=== PATIENT | female | born 1960 | race Caucasian/White ===

== ENCOUNTER 2017-01-27 20:39 | Inpatient (IN) | payer BC, OTHER ==
[2017-01-27] MEDS ORDERED: VANCOMYCIN 1 GM in NS 250 ML IV ONE (20:56)
[2017-01-27] MEDS ORDERED: CLINDAMYCIN 600 MG/DEXTROSE 50 ML IV ONE (21:02)
--- NOTE | 2017-01-27 21:14 | UCPHY ---
H & P Patient Type: New Chief Complaint Nursing Narrative: right foot infection, started Friday Time Seen by Provider: 01/27/17 20:55 HPI/ROS: This patient presents with a significant foul-smelling foot infection. She explains along with her sister who also provides history that for approximately 2 months he has had a blister of plantar aspect of the right foot that was not causing him many symptoms. However after running through airport to catch a plane to [place] this weekend on Friday she then developed some foot swelling and thinks she may have tweaked her ankle. She then had difficulty fitting into her shoe and she thinks that and squeezing in the shoe she may have caused an abrasion to the the bottom blister then became infected. By Friday there is erythema to the medial aspect of the foot along the 1st metatarsal region by description of her sister. The patient started penicillin 500 mg tabs 4 times a day on Friday (her sister had this PCN to tx. a dental infection), however symptoms quickly progressed to include an open wound to the plantar aspect of the forefoot, open wound to the lateral aspect of the great toe erythema to the dorsum of the foot and pale and black tissue to the plantar distal forefoot with increasing foul smell. She sella I a doctor in their hotel this morning who gave her 5 mg dose of Levaquin in 300 mg oral dose of clindamycin encouraged her to travel to hospital for IV antibiotics. The [place] and present here. ROS: She thinks she had a fever on Friday but attributes that to cold symptoms. Her fever has resolved although she did take ibuprofen 6 hours prior to arrival. No other constitutional symptoms. HEENT: Her URI-nasal congestion has resolved. No headache. Pulmonary: No cough GI: No nausea or vomiting : No complaints 10 point ROS is otherwise negative Source: Patient Exam Limitations: No limitations - Personal History LMP (Females 10-55): Post Menopausal Current Tetanus Diphtheria and Acellular Pertussis (TDAP): No - Medical/Surgical History PMH: Moderate obesity. Otherwise healthy Hx Asthma: No Hx Chronic Respiratory Disease: No Hx Diabetes: No Hx Cardiac Disease: No Hx Renal Disease: No Hx Cirrhosis: No Hx Alcoholism: No Hx HIV/AIDS: No Hx Splenectomy or Spleen Trauma: No Other PMH: DENIES - Family History Significant Family History: No pertinent family hx - Social History Smoking Status: Never smoked Alcohol Use: Occasionally Drug Use: None Additional Social History: This patient lives in [place]. She is visiting here with her sister after traveling back from [place] - Physical Exam Exam: General Appearance: Alert, no distress. Eyes: Pupils equal and round no pallor or injection. ENT, Mouth: Mucous membranes moist. Respiratory: There are no retractions, lungs are clear to auscultation. Cardiovascular: Regular rate and rhythm. Neurological: Alert. She has slight decreased sensation to pinprick to the affected foot. Otherwise intact throughout Skin: Warm and dry, no rashes. Musculoskeletal: Neck is supple nontender. Extremities are symmetrical, full range of motion. Except for right foot Right foot: There is open wound to the lateral aspect of the great toe with confluent erythema to the great toe and moderate swelling circumferentially. The erythema extends to the distal 1/3 dorsum of the foot and on the plantar aspect of the foot there is a 1 cm in diameter ulcerative lesion that appears to go to deep layers of skin surrounding area appears to be nonviable pale skin 3 x 6 cm in size. There is dark discoloration to the plantar aspect of the great toe in the entire area is foul-smelling. Psychiatric: Patient is oriented X 3, there is no agitation. DIFFERENTIAL DIAGNOSIS: After history and physical exam differential diagnosis was considered for gangrene, foot cellulitis, osteomyelitis Constitutional: Initial Vital Signs Temperature (C) 37.0 C 01/27/17 20:46 Heart Rate 90 01/27/17 20:46 Respiratory Rate 16 01/27/17 20:46 Blood Pressure 137/129 H 01/27/17 20:46 O2 Sat (%) 96 01/27/17 20:46 O2 Delivery Mode Room Air Allergies/Adverse Reactions: No Known Allergies Allergy (Unverified 12/26/15 14:51) Home Medications: Medication Instructions Recorded NK [No Known Home Meds] 01/27/17 Medical Decision Making - Diagnostics Imaging: Foot X-ray: There is gas in the plantar aspect of the great toe the lateral view by my interpretation. I appreciate no bony erosions or other abnormalities. ED Course/Re-evaluation: IV vancomycin and Zosyn suggested. We do not have Zosyn here in the clinic. Will give her Vancomycin & a dose of clindamycin while she awaits admission the plan for vanco/Zosyn in the hospital I spoke with Dr. Anand Gale Infectious Disease to coordinate antibiotic Plan This spoke with Dr Jason Maier, Orthopoedic MD on -call who will consult in the hospital for potential surgical debridement. Spoke with Dr. Michael Huang, hospitalist who will accept this patient at [facility] for transfer. Discussion: Patient presents with foot infection concerning for gangrene warranting admission and potential surgical debridement. Patient was initially reluctant to be admitted but then agreed. - Data Points Laboratory Results: Laboratory Results 01/27/17 21:21 01/27/17 21:21 01/27/17 01/27/17 21:21 21:21 WBC 12.98 10^3/uL H 10^3/uL (3.80-9.50) RBC 5.45 10^6/uL H 10^6/uL (4.18-5.33) Hgb 16.0 g/dL g/dL (12.6-16.3) Hct 46.5 % % (38.0-47.0) MCV 85.3 fL fL (81.5-99.8) MCH 29.4 pg pg (27.9-34.1) MCHC 34.4 g/dL g/dL (32.4-36.7) RDW 12.6 % % (11.5-15.2) Plt Count 341 10^3/uL 10^3/uL (150-400) MPV 9.6 fL fL (8.7-11.7) Neut % (Auto) 59.8 % % (39.3-74.2) Lymph % (Auto) 29.6 % % (15.0-45.0) [place] % (Auto) 7.9 % % (4.5-13.0) Eos % (Auto) 1.8 % % (0.6-7.6) Baso % (Auto) 0.5 % % (0.3-1.7) Nucleat RBC Rel Count 0.0 % % (0.0-0.2) Absolute Neuts (auto) 7.77 10^3/uL H 10^3/uL (1.70-6.50) Absolute Lymphs (auto) 3.84 10^3/uL H 10^3/uL (1.00-3.00) Absolute Monos (auto) 1.02 10^3/uL H 10^3/uL (0.30-0.80) Absolute Eos (auto) 0.24 10^3/uL 10^3/uL (0.03-0.40) Absolute Basos (auto) 0.06 10^3/uL 10^3/uL (0.02-0.10) Absolute Nucleated RBC 0.00 10^3/uL 10^3/uL (0-0.01) Immature Gran % 0.4 % % (0.0-1.1) Immature Gran # 0.05 10^3/uL 10^3/uL (0.00-0.10) ESR 35 MM/HR H MM/HR (0-30) Sodium 141 mEq/L mEq/L (134-144) Potassium 3.7 mEq/L mEq/L (3.5-5.2) Chloride 96 mEq/L L mEq/L (97-110) Carbon Dioxide 27 mEq/l mEq/l (22-31) Anion Gap 18 mEq/L H mEq/L (8-16) BUN 18 mg/dL mg/dL (7-23) Creatinine 0.7 mg/dL mg/dL (0.6-1.0) Estimated GFR > 60 Glucose 203 mg/dL H mg/dL (70-100) Calcium 9.4 mg/dL mg/dL (8.5-10.4) Medications Given: Discontinued Medications Vancomycin HCl 1 gm/ Sodium (Chloride) 250 mls @ 250 mls/hr IV EDNOW ONE PRN Reason: Protocol Stop: 01/27/17 21:55 Last Admin: 01/27/17 21:40 Dose: 250 mls Departure - Departure Disposition: [facility] Acute Clinical Impression: Gangrene of foot Condition: Fair Referrals: NONE *PRIMARY CARE P,. [Primary Care Provider] - As per Instructions - PQRS PQRS Measurement: NA
[2017-01-27 21:31] LABS: % IMMATURE GRANULYOCYTES 0.4 % (0.0-1.1); ABSOLUTE IMMATURE GRANULOCYTES 0.05 10^3/uL (0.00-0.10); ADD DIFF? NO; ADD MORPH? NO; ADD SCAN? NO; ATYPICAL LYMPHOCYTE FLAG 10 (0-99); FRAGMENT RBC FLAG 0 (0-99); HEMATOCRIT 46.5 % (38.0-47.0); LEFT SHIFT FLG 0 (0-99); LIPEMIA HEMOLYSIS FLAG 90 (0-99); MEAN CELL HEMOGLOBIN 29.4 pg (27.9-34.1); MEAN CELL HEMOGLOBIN CONCENTR. 34.4 g/dL (32.4-36.7); MEAN CELL VOLUME 85.3 fL (81.5-99.8); MEAN PLATELET VOLUME 9.6 fL (8.7-11.7); PLATELET CLUMPS FLAG 0 (0-99); PLATELET COUNT 341 10^3/uL (150-400); RED BLOOD CELL COUNT 5.45 10^6/uL (4.18-5.33); RED CELL DISTRIBUTION WIDTH 12.6 % (11.5-15.2)
[2017-01-27 21:43] LABS: ANION GAP 18 mEq/L (8-16); CALCIUM 9.4 mg/dL (8.5-10.4); CARBON DIOXIDE 27 mEq/l (22-31); CHLORIDE 96 mEq/L (97-110); CREATININE 0.7 mg/dL (0.6-1.0); GLOMERULAR FILTRATION RATE > 60; GLUCOSE 203 mg/dL (70-100); POTASSIUM 3.7 mEq/L (3.5-5.2); SODIUM 141 mEq/L (134-144)
[2017-01-27 21:47] LABS: SEDIMENTATION RATE 35 MM/HR (0-30)
[2017-01-27] MEDS ORDERED: PIPERACILLIN SODIUM/TAZOBACTAM 3.375 GM in NS 100 ML IV ONE (21:50)
[2017-01-27] MEDS ORDERED: CLINDAMYCIN 600 MG/DEXTROSE/50 ML BAG IV ONE (22:04)
[2017-01-28] MEDS ORDERED: HYDROmorphONE/DILAUDID 1 MG/ML SYR IVP PRN (00:10)
[2017-01-28] MEDS ORDERED: ONDANSETRON 4 MG/2 ML VIAL IVP PRN (00:10)
[2017-01-28] MEDS ORDERED: ONDANSETRON DISINTEGRATING 4 MG TAB PO PRN (00:10)
[2017-01-28] MEDS ORDERED: NS 1,000 ML IV SCH (00:15)
--- NOTE | 2017-01-28 00:47 | PDGENHP ---
History and Physical - Chief Complaint foot pain and swelling - History of Present Illness Patient is a 56/F with obesity who presented to the Urgent care with complaint of R foot infection. Patient has been traveling for the past 2 weeks, was most recently in [place], when on 01/23 she rolled her ankle at the airport. After that , her ankle and foot began to swell and she developed a blister on the plantar aspect of her R foot, just below the great toe. She reports a subjective fever on Friday night and then the following day her blister opened and started draining sero-sanguinous, foul-smelling fluid. Her foot was moderately edematous , erythematous and painful. She continued to have subjective fevers and chills through the weekend and today she went to a clinic in [place] and was given Cipro and Clindamycin, which she took. She then flew back to [place] and went to the Urgent care for further evaluation. She denies any associated headache, dizziness, chest pain, palpitations, cough, shortness of breath or n/v/d. On arrival to the Urgent Care, she was afebrile and hemodynamically stable. Labs revealed mild leukocytosis, normal BMP. X-ray of her foot revealed significant soft tissue edema with subcutaneous gas also seen. Orthopedics and ID were consulted, patient was cultured and initiated on broad spectrum antibiotics. She was then transferred to [facility] for admission. History Information - Allergies/Home Medication List Allergies/Adverse Reactions: No Known Allergies Allergy (Unverified 12/26/15 14:51) Home Medications: NK [No Known Home Meds] 01/27/17 [Last Taken Unknown] I have personally reviewed and updated: family history, medical history, social history, surgical history - Past Medical History Additional medical history: obesity. patient denies any other medical history - Surgical History Reports: no pertinent surgical hx - Family History Additional family history: F: CVA in 90s. M: CHF - Social History Smoking Status: Never smoked Alcohol Use: Occasionally Drug Use: None Additional social history: Patient works in [employer]; lives in [place], is currently visiting her sisters in [place]. Review of Systems ROS: 10pt was reviewed & negative except for what was stated in HPI & below Physical Exam Temp Pulse Resp BP Pulse Ox 37.7 C 94 18 174/88 H 90 L 01/28/17 00:27 01/28/17 00:27 01/28/17 00:27 01/28/17 00:27 01/28/17 00:27 O2 (L/minute) 2 Constitutional: no apparent distress, appears nourished, not in pain, obese Eyes: PERRL, anicteric sclera, EOMI Ears, Nose, Mouth, Throat: moist mucous membranes, hearing normal, ears appear normal, no oral mucosal ulcers Cardiovascular: regular rate and rhythym, no murmur, rub, or gallop, pulses symmetric bilaterally, edema (1-2+ pitting edema of RLE), No JVD Peripheral Pulses: 2+: dorsalis-pedis (R), dorsalis-pedis (L) Respiratory: no respiratory distress, no rales or rhonchi, clear to auscultation Gastrointestinal: normoactive bowel sounds, soft, non-tender abdomen, no palpable masses, No tenderness, No guarding, No rebound, No distension Genitourinary: no bladder fullness, no bladder tenderness Skin: warm, other (R foot edematous, erythematous and warm to touch; foul smelling serosang discharge; wound wrapped in clean dressing), No mottled Musculoskeletal: full muscle strength, no muscle tenderness, normal joint ROM, no joint effusions Neurologic: AAOx3, sensation intact bilaterally, CN II-XII Intact, No weakness, No numbness, No facial droop Psychiatric: interacting appropriately, not anxious, not encephalopathic, thought process linear Lab Data & Imaging Review 01/27/17 21:21 01/27/17 21:21 WBC 12.98 10^3/uL (3.80-9.50) H 01/27/17 21:21 RBC 5.45 10^6/uL (4.18-5.33) H 01/27/17 21:21 Hgb 16.0 g/dL (12.6-16.3) 01/27/17 21:21 Hct 46.5 % (38.0-47.0) 01/27/17 21:21 MCV 85.3 fL (81.5-99.8) 01/27/17 21:21 MCH 29.4 pg (27.9-34.1) 01/27/17 21:21 MCHC 34.4 g/dL (32.4-36.7) 01/27/17 21:21 RDW 12.6 % (11.5-15.2) 01/27/17 21:21 Plt Count 341 10^3/uL (150-400) 01/27/17 21:21 MPV 9.6 fL (8.7-11.7) 01/27/17 21:21 Neut % (Auto) 59.8 % (39.3-74.2) 01/27/17 21:21 Lymph % (Auto) 29.6 % (15.0-45.0) 01/27/17 21:21 [place] % (Auto) 7.9 % (4.5-13.0) 01/27/17 21:21 Eos % (Auto) 1.8 % (0.6-7.6) 01/27/17 21:21 Baso % (Auto) 0.5 % (0.3-1.7) 01/27/17 21:21 Nucleat RBC Rel Count 0.0 % (0.0-0.2) 01/27/17 21:21 Absolute Neuts (auto) 7.77 10^3/uL (1.70-6.50) H 01/27/17 21:21 Absolute Lymphs (auto) 3.84 10^3/uL (1.00-3.00) H 01/27/17 21:21 Absolute Monos (auto) 1.02 10^3/uL (0.30-0.80) H 01/27/17 21:21 Absolute Eos (auto) 0.24 10^3/uL (0.03-0.40) 01/27/17 21:21 Absolute Basos (auto) 0.06 10^3/uL (0.02-0.10) 01/27/17 21:21 Absolute Nucleated RBC 0.00 10^3/uL (0-0.01) 01/27/17 21: Immature Gran % 0.4 % (0.0-1.1) 01/27/17 21:21 Immature Gran # 0.05 10^3/uL (0.00-0.10) 01/27/17 21:21 ESR 35 MM/HR (0-30) H 01/27/17 21:21 Sodium 141 mEq/L (134-144) 01/27/17 21:21 Potassium 3.7 mEq/L (3.5-5.2) 01/27/17 21:21 Chloride 96 mEq/L (97-110) L 01/27/17 21:21 Carbon Dioxide 27 mEq/l (22-31) 01/27/17 21:21 Anion Gap 18 mEq/L (8-16) H 01/27/17 21:21 BUN 18 mg/dL (7-23) 01/27/17 21:21 Creatinine 0.7 mg/dL (0.6-1.0) 01/27/17 21:21 Estimated GFR > 60 01/27/17 21:21 Glucose 203 mg/dL (70-100) H 01/27/17 21:21 Calcium 9.4 mg/dL (8.5-10.4) 01/27/17 21:21 Visualized and Interpreted imaging results: Yes Interpretation: x-ray R foot: soft tissue swelling with subcutaneous gas; no bony fracture Visualized and Interpreted EKG results: Yes EKG Interpretation: Positive for: normal sinsus rhythm Assessment & Plan Assessment: Patient is a 56/F with no significant pmh who presented to the [facility] with R foot pain, swelling and erythema x 3 days. Work up reveals acute gangrene of an open foot wound. Plan: # acute gangrene of R foot Patient reports infection began with a ruptured blister, wound has progressively worsened over the past 3 days. She denies any pmh, but will screen for DM2. X-ray reveals subcutaneous gas concerning for gas gangrene. On presentation, patient has a leukocytosis, but does not have fever, tachycardia or tachypnea or evidence of endorgan involvement, so does not meet sepsis criteria. Will check MRI to further assess extent of wound and to rule out osteomyelitis, continue broad spectrum antibiotics and f/o Ortho and ID recommendations. - f/u blood and wound cultures - cont Vanc/Zosyn - IVF hydration: NS @ 100 cc/hr - pain control prn - will also check doppler, to r/o DVT given degree of swelling and recent air travel - f/u ID and Ortho # dispo: admit to inpatient service for likely > 2 [place] stay # gen: NPO DVT ppx: lovenox, when appropriate post-op Full code
--- NOTE | 2017-01-28 00:48 | CPEKG ---
Heart Rate: 90 RR Interval: 667 P-R Interval: 168 QRSD Interval: 92 QT Interval: 364 QTC Interval: 446 P Kellogg: 44 QRS Kellogg: -16 T Wave Kellogg: 56 EKG Severity - OTHERWISE NORMAL ECG - EKG Impression: SINUS RHYTHM EKG Impression: BORDERLINE LEFT AXIS DEVIATION EKG Impression: Possible left atrial abnormality Electronically Signed By: Rich Cevallos 28-Jan-2017 06:28:17
[2017-01-28 04:51] LABS: % IMMATURE GRANULYOCYTES 0.4 % (0.0-1.1); ABSOLUTE IMMATURE GRANULOCYTES 0.05 10^3/uL (0.00-0.10); ADD DIFF? NO; ADD MORPH? NO; ADD SCAN? NO; ATYPICAL LYMPHOCYTE FLAG 30 (0-99); FRAGMENT RBC FLAG 0 (0-99); HEMATOCRIT 44.5 % (38.0-47.0); HEMOGLOBIN 15.2 g/dL (12.6-16.3); LEFT SHIFT FLG 0 (0-99); LIPEMIA HEMOLYSIS FLAG 90 (0-99); MEAN CELL HEMOGLOBIN 29.4 pg (27.9-34.1); MEAN CELL HEMOGLOBIN CONCENTR. 34.2 g/dL (32.4-36.7); MEAN CELL VOLUME 86.1 fL (81.5-99.8); MEAN PLATELET VOLUME 9.7 fL (8.7-11.7); PLATELET CLUMPS FLAG 0 (0-99); PLATELET COUNT 289 10^3/uL (150-400); RED BLOOD CELL COUNT 5.17 10^6/uL (4.18-5.33); RED CELL DISTRIBUTION WIDTH 12.6 % (11.5-15.2)
[2017-01-28 04:53] LABS: INR 1.17 (0.83-1.16); PROTIME(PATIENT) 14.9 SEC (12.0-15.0)
[2017-01-28 04:57] LABS: ALANINE AMINOTRANSFERASE 31 IU/L (9-52); ALBUMIN 3.1 g/dL (3.5-5.0); ALKALINE PHOSPHATASE 83 IU/L (38-126); ANION GAP 11 mEq/L (8-16); ASPARTATE AMINOTRANSFERASE 17 IU/L (14-46); CALCIUM 8.9 mg/dL (8.5-10.4); CARBON DIOXIDE 24 mEq/l (22-31); CHLORIDE 103 mEq/L (97-110); CREATININE 0.6 mg/dL (0.6-1.0); GLOMERULAR FILTRATION RATE > 60; GLUCOSE 221 mg/dL (70-100); POTASSIUM 3.9 mEq/L (3.5-5.2); SODIUM 138 mEq/L (134-144); TOTAL PROTEIN 6.6 g/dL (6.3-8.2)
[2017-01-28 05:21] LABS: SEDIMENTATION RATE 48 MM/HR (0-30)
[2017-01-28 05:22] LABS: C-REACTIVE PROTEIN 133.9 mg/L (<10.0)
[2017-01-28] MEDS ORDERED: PIPERACILLIN/TAZO 3.375 GM/DEX 50 ML IV SCH (06:00)
[2017-01-28] MEDS ORDERED: VANCOMYCIN HCL/NORMAL SALINE 250 ML IV SCH (09:00)
[2017-01-28] MEDS: ENOXAPARIN 40 MG/0.4 ML SYR SC SCH (09:08)
--- NOTE | 2017-01-28 09:12 | WOCRNPDOC ---
[facility] Advanced Assessment Note - Skin Integrity Problem, Advanced Assess Right Foot Dressing Type: Gauze Dressing Description: Saturated Exudate Amount: Moderate Exudate Color: Clear, Reddish/Yellow Exudate Characteristic(s): Serosanguinous Integumentary Issue Intervention: Dressing Applied Janet Wound Tissue: Erythema, Macerated, Swollen, Hyperkeratotic Janet Wound Swelling: Moderate Wound Bed Color: Red, Montero Wound Bed Constitution: Granulation Tissue (in wound bed of 2nd/3rd metatarsal plantar wound), Undermining (in wound bed of 2nd/3rd metatarsal plantar wound, from 6-12 o'clock 0.2cm), De-roofed Serous Blister (Plantar 1st metatarsal/ great toe wound, exudate presently clear, non-purulent, malodorous.) Wound Edges: Well Defined (2nd/3rd metatarsal plantar wound), Irregular (wound distal to R great toe) Site Odor: Foul Site Measurement - Head-to-Toe Length X Width X Depth (cm): R plantar 1st metatarsal (below great toe): [id number]. R plantar 2nd/3rd metatarsal: [id number], undermining 0.2cm from 6-12 o'clock. Skin Integrity Problem Comment: Two discrete wounds on patient's R plantar foot. The first wound is just below R great toe on the plantar surface/1st metatarsal. It is a de-roofed blister, which patient reported was sanguionous and previously intact, now open and draining clear, foul-smelling exudate. It extends from the plantar surface up between 1st and 2nd toes, and is draining a moderate amount. Janet-wound tissue is macerated as a result of this exudate. Wound bed comprised of montero, boggy tissue, necrotic in appearance. Associated erythema and swelling extending up R foot, w/ c/o pain closer to the wound. The second wound is located on the plantar R foot between the 2nd and 3rd metatarsal , and is consistent in appearance w/ a diabetic foot ulcer, though patient has no known h/o diabetes. Wound bed 90% granulation, 10% whitish, fibrotic tissue, no apparent necrosis. Significant hyperkeratotic tissue janet-wound, and 0.2cm undermining noted from 6-12 o'clock. Patient reports that this wound has healed previously and re-opened this past week. Assessed site with Dania Valencia and Luisito. Current plan includes an MRI of this extremity and surgical consultation. Wound care at this point directed at managing exudate to protect janet-wound tissue. Will re-evaluate when underlying dx and tx more apparent.
[2017-01-28 09:20] LABS: HEMOGLOBIN A1C 10.2 % (4.0-6.0)
[2017-01-28] MEDS ORDERED: VANCOMYCIN 500 MG in D5W 100 ML IV ONE (09:30)
--- NOTE | 2017-01-28 10:12 | GCON ---
[f rep st] CONSULTATION INFECTIOUS DISEASE DATE OF CONSULTATION: 01/28/2017 REFERRING PHYSICIAN: Bisi Haji MD CHIEF COMPLAINT: Right foot open wound with drainage and foul smelling, fevers and shaking chills. HISTORY OF PRESENT ILLNESS: This is a 56-year-old, female, who has insignificant past med ical history other than obesity, who presented to the urgent care yesterday due to foul-smelling ope n wound on her right foot. Her history dates back to about 6 days ago when she was running through the airport and had twisted her ankle. She started to notice swelling of her foot and had jammed he r foot into a tight fitting shoe. She has had some calluses on the bottom of her foot that she stat es were closed during this time. On Friday she reached [place] and started to have fevers to 102 w ith shaking chills. By Friday, she continued to have fevers, shaking chills and she noted that there was a small area on her bottom of her foot that was starting to get bluish in nature, an d the foot was swelling up. She started on her sister's penicillin medication and then [place] [facility] [place]. By Friday night, she states that the medial aspect of her foot wound started to open up and then started to become blackish in nature. She continued to have fevers and shaking chills. Friday morning, she started to notice redness developing involving her dorsum and plantar aspect of her foot. She did not submerge this foot in any pool water or ocean water or any other [facility] water. She did however take a shower. She saw the local [facility] doctor on Friday morning who put her on ciprofloxacin and clindamycin which she took, and continued to take until she flew back to [facility] yesterday. She came to the urgent care in the evening. Blood work was done, showed a leuko cytosis of 12.9, an elevated ESR, a venous lactate of 1.2. She had a temperature of 37, and a blood pressure of 137/129. Blood cultures x2 sets were drawn and a wound swab was done of the foot, whic h showed 1+ gram-negative rods, 1+ gram-positive cocci and the culture is pending. She had a foot x -ray done which showed gas in the subcutaneous tissue but no obvious osteomyelitis, and it was recom mended to come to the ER and get admitted for hospitalization. She was started empirically on vanco mycin and clindamycin at the urgent care and then continued on vancomycin and Zosyn after she was ad mitted here late last night, early this morning. An MRI has been ordered and is waiting to be done at this time. The patient was quite upset this morning, as she thought that she would have the MRI and surgery in the middle of the night. She was about to leave AMA. I had a long discussion with h er, alongside with the hospitalist team to review the gravity of her infection. Infectious Disease is now consulted for further evaluation and management. REVIEW OF SYSTEMS: GENERAL: Fevers and shaking chills as stated above. HEAD: Intermittent headac hes. EYES: No change in vision. ENT: No sore throat or difficulty swallowing, ear pain or draina ge. She does have some nasal drainage and postnasal drip without sinus pain or pressure. CARDIOVAS CULAR: Denies any chest pain or rapid heartbeat. RESPIRATORY: Denies any shortness of breath. Sh e has intermittent mild phlegm with a minimal cough. ABDOMEN: Mild abdominal cramps which are inte rmittent and has currently resolved. Denies nausea, vomiting or diarrhea. Denies any flank pain or back pain. : Denies any dysuria or hematuria. MUSCULOSKELETAL: Denies any other joint pains o r muscle aches except for the right ankle and foot. Right lower extremity edema. SKIN: No other r ashes or wounds other than the right foot wound. Rest of 10-point review of systems essentially neg ative. PAST MEDICAL HISTORY: Significant for obesity. PAST SURGICAL HISTORY: None. ALLERGIES: Eggs but she tolerates baked goods that have eggs in it. SOCIAL HISTORY: Nonsmoker. Drinks alcohol occasionally. No illicit drugs. She works in [employer] for [email or web address]. She lives in [place]. She lives alone. She has a dog and a cat which are healthy. Recent travel to [facility] over the weekend. She has sisters in [facility]. FAMILY HISTORY: Significant for CVA, CHF, coronary disease. PHYSICAL EXAMINATION: VITAL SIGNS: Temperature 37.7, pulse is 94, respiratory rate is 18, blood pr essure 174/88, saturation 90% on 2 L O2 via nasal cannula. GENERAL: Patient is sitting up, in no a cute respiratory distress. Awake, alert, oriented x3. The room is very foul smelling from her righ t foot. HEENT: Head is normocephalic, atraumatic. Eyes with some mild conjunctival injection bila terally. No conjunctival petechiae noted. Oropharynx is clear. There is no obvious posterior eryt karis or thrush. Tongue is mildly coated. Dry mucous membranes. CARDIOVASCULAR: S1, S2. Regular rate and rhythm. No obvious murmurs appreciated. RESPIRATORY: Clear to auscultate bilaterally. N o rhonchi or rales appreciated. ABDOMEN: Obese, positive bowel sounds in all 4 quadrants. Soft, n ontender, nondistended. No obvious organomegaly appreciated. EXTREMITIES: Pertinent findings with right lower extremity edema. MUSCULOSKELETAL: No obvious joint effusions or pain on palpation of the joints. SKIN: Pertinent findings, erythema involving the dorsum and plantar aspect of the righ t foot with 2 open wounds, 1 in the center of the plantar foot which has heavy callus around it and another 1 more medially which extends up into the base of the great toe. There is necrotic foul-sme lling tissue there, and there is some intermixed serosanguineous and purulent drainage that can be e xpressed through there. There is mild crepitus that can be appreciated especially along the medial aspect of the foot. Again the foot is quite foul-smelling. There is bogginess to the tissue as wel l. LABS: White blood cell count currently 11.6, hemoglobin 15.2, platelets are 289, neutrophil count 6 5%. INR 1.1. Venous lactic acid 1.2. Sodium 138, potassium 3.9, chloride 103, bicarb is 24, BUN o f 17, creatinine 0.6. AST 17, ALT 31, alkaline phosphatase 83. Total bilirubin 1.0. C-reactive pr otein 133.9. Blood cultures x2 sets are pending. Wound cultures as stated above. Foot x-ray was r eviewed by me. It showed gas in the subcutaneous tissue. Lower extremity ultrasound with no DVT. She has a right Tolbert cyst and right groin nonspecific lymphadenopathy up to 3.4 cm. ASSESSMENT: Right foot cellulitis with a wound infection and necrotic tissue, concerning for necrot izing infectious process, underlying abscess. PLAN: The patient is currently on vancomycin and Zosyn. We will increase Zosyn dose to 4.5 g q.6 h ours for pseudomonal dosing at this point in time, until cultures are available. We will also add c lindamycin for antitoxin properties given the clinical presentation and concerns as stated above. M RI has been ordered and is to be done shortly. Orthopedics has been consulted. Dr. Wright is aware. The patient will require surgical management of this. Brief overview of the workup and treatment plans were explained in detail to the patient, along with a gravity and seriousness of the current i nfectious process along with likely need for ongoing hospitalization at least in the short term, pot ential complications, etc. Again first half an hour was spent in trying to convince the patient to stay in the hospital as she was about to leave [place]. A great deal of discussion was had with the milka goncalves along with her sisters at the bedside in order to convince the patient to stay. She has agreed to stay and has agreed to further management and care as well as workup here. Care coordinated wit h the hospitalist team, nursing team. TIME SPENT: Greater than 110 minutes spent in the care of this patient with the above coordination of care, counseling and education, etc. Thank you very much, for allowing me the opportunity to care for your patient in consultation. /[id number]/MODL
[2017-01-28] MEDS ORDERED: GADOBUTROL 10 ML VIAL IVP ONE (11:01)
[2017-01-28] MEDS ORDERED: BACITRACIN 50,000 UNITS/10 ML SYR IRR ONE (13:13)
[2017-01-28] MEDS ORDERED: BUPIVACAINE 0.25% 30 ML SDV ONE (13:13)
[2017-01-28] MEDS: CLINDAMYCIN 600 MG/DEXTROSE 50 ML IV SCH ×3 (14:44→21:09)
--- NOTE | 2017-01-28 15:02 | HOSPPROG ---
Hospitalist Progress Note Assessment/Plan: # acute right foot cellulitis with open wound and necrotic tissue- this is been a slowly developing wound patient was taking ciprofloxacin and clindamycin through a [facility] physician while traveling- return to [place] and presented to urgent care Foot xray ( personally reviewed and interpreted) with sub Q gas under great toe no fractures - IV clindamycin, vancomycin and Zosyn per Infectious Disease - wound care prior to operating room - MRI preoperative - planning for surgical debridement with Dr. Hanna today - blood cultures pending # Hyperglycemia - new dx DM - HBA1c is 10.2 on admission - will need to initiate treatment prior to dc - follow post-op sugars and start low dose SSI if remains elevated - cont IVF while NPO for OR # acute leukocytosis- secondary to foot cellulitis and wound- follow on antibiotics- oxygen saturations 94% on room air # prophylaxis with Lovenox postop when cleared by surgery # diet NPO for the operating room # disposition greater than 2 midnights as will require surgical debridement and postoperative wound care as well as diagnostics related to pathogen I have discussed the case with infectious disease we will begin with triple therapy antibiotics and follow postoperative wound cultures closely to assist in determination of length of treatment Subjective: minimal pain Objective: Vital Signs Temp Pulse Resp BP Pulse Ox 37.3 C 91 16 170/105 H 96 01/28/17 12:06 01/28/17 12:06 01/28/17 12:06 01/28/17 12:06 01/28/17 12:06 Microbiology 01/27/17 21:55 Gram Stain - Final Toe - Swab Laboratory Results 01/28/17 04:25 01/28/17 04:25 01/27/17 01/28/17 01/29/17 05:59 05:59 05:59 Intake Total 950 Balance 950 PT 14.9 SEC (12.0-15.0) 01/28/17 04:25 INR 1.17 (0.83-1.16) H 01/28/17 04:25 - Physical Exam Constitutional: obese Eyes: anicteric sclera Ears, Nose, Mouth, Throat: moist mucous membranes Cardiovascular: regular rate and rhythym Respiratory: no respiratory distress, no rales or rhonchi Gastrointestinal: normoactive bowel sounds, soft, non-tender abdomen Genitourinary: no bladder fullness Skin: warm, other ( open necrotic wound of the left great toe) Musculoskeletal: No asymmetric calves Neurologic: AAOx3 Psychiatric: interacting appropriately, anxious Lymph, Heme, Immunologic: no cervical LAD ICD10 Worksheet Patient Problems: Problems Problem Status Onset Gangrene of foot Acute
[2017-01-28] MEDS: PIPERACILLIN/TAZO 4.5 GM/DEX 100 ML IV SCH ×3 (15:29→19:56)
[2017-01-28] MEDS ORDERED: CANN-EASE 2 GM TUBE TP ONE (15:33)
[2017-01-28] MEDS ORDERED: MIDAZOLAM 2 MG/2 ML VIAL ONE (16:22)
[2017-01-28] MEDS ORDERED: fentaNYL 100 MCG/2 ML INJ ONE (16:44)
[2017-01-28] MEDS ORDERED: PROPOFOL/EMULSION 500 MG/50 ML BOTTLE IV ONE (16:45)
--- NOTE | 2017-01-28 17:36 | POSTOPPROG ---
Post Op Note Date of Operation: 01/28/17 Surgeon: Yuri Maier Anesthesiologist: Sudheer Anesthesia: LMA Pre-op Diagnosis: Right foot ulcer Post-op Diagnosis: Infected right foot ulcer Procedure: Debridement of foot ulcer Findings: Black and Montero liquified tissue (foul smelling) Inf/Abcess present in the surg proc area at time of surgery?: Yes Depth: Deep Incisional (Fascial) EBL: Minimal
[2017-01-28] MEDS ORDERED: ONDANSETRON 4 MG/2 ML VIAL ONE (17:40)
[2017-01-28] MEDS ORDERED: GLYCOPYRROLATE 0.2 MG/1 ML VIAL ONE (17:40)
[2017-01-28] MEDS ORDERED: ROCURONIUM 50 MG/5 ML VIAL ONE (17:41)
[2017-01-28] MEDS ORDERED: PHENYLEPHRINE HCL 100 MCG/ML SYR ONE (17:41)
[2017-01-28] MEDS ORDERED: SUGAMMADEX SODIUM 200 MG/2 ML VIAL IVP ONE (17:41)
--- NOTE | 2017-01-28 18:04 | GOP ---
[f rep st] OPERATIVE REPORT DATE OF OPERATION: 01/28/2017 SURGEON: Yuri Maier MD PREOPERATIVE DIAGNOSIS: Septic foot ulcer, right forefoot. POSTOPERATIVE DIAGNOSIS: Septic foot ulcer, right forefoot. PROCEDURE PERFORMED: Debridement of right forefoot ulcer. FINDINGS: She had essentially liquefaction necrosis of the medial forefoot over the hallux proximal phalanx. This is exclusively on the plantar surface. I removed all nonviable tissue which was ess entially black and dark austin in color. It was mostly liquified. There was a remarkable foul smell from this tissue as well. This communicated with an ulcer over the 3rd metatarsophalangeal joint in the forefoot as well. I debrided the thick callosities at this location and removed all nonviable tissue I was able to identify. Saline soaked gauze was placed within the depths of the wound, follo wed by wet-to-dry dressing for a dressing change debridement. INDICATIONS: The patient is a 56-year-old female with a steadily worsening picture of an ulcer on h er foot. Her workup has included blood sugar testing which revealed high likelihood of diabetes. S he has minimal discomfort in her forefoot but has foul-smelling drainage and also with blackened mar gins on the medial forefoot. She is brought to the operating room for urgent debridement of nonviab le tissue. DESCRIPTION OF PROCEDURE: After routinely checking the patient's identification, consent and the ramirez ccessful induction of LMA general anesthetic, the patient's right lower extremity was prepped and dr aped in the usual standard fashion. A surgical time-out was completed. I did not use a tourniquet during this case, and notably there was minimal bleeding from her skin margins. I essentially used gauze to wipe most of the tissue free. This evacuated the majority of the disease liquified tissue. I then sharply debrided the skin edges in the depths of the wound. There was an obvious communica tion when I probed between the ulcer over the 3rd metatarsal phalangeal joint and the medial ulcer, which ran from the first MTP joint out to the IP flexion crease of the great toe. This is exclusive ly on the plantar surface. As noted above, there was minimal bleeding of the surrounding skin omar ns, even though these were sharply debrided back to what appeared to be pink tissue. The wound bed was thoroughly irrigated with 2 L of normal saline laced with bacitracin. Saline soaked gauze was p laced in the wound, followed by a pile of dry gauze dressings and a bulky wrap. The patient was rev ersed from anesthetic and extubated in the operating room and transferred to the recovery area. The patient tolerated the procedure well. There were no complications. /[id number]/MODL
[2017-01-28] MEDS: HYDROCODONE/APAP 5/325 TAB PO PRN (21:08)
[2017-01-28] MEDS: VANCOMYCIN 1.5 GM in D5W 250 ML IV SCH (21:52)
[2017-01-29] MEDS: PIPERACILLIN/TAZO 4.5 GM/DEX 100 ML IV SCH ×5 (00:09→23:39)
[2017-01-29 04:57] LABS: % IMMATURE GRANULYOCYTES 0.6 % (0.0-1.1); ABSOLUTE IMMATURE GRANULOCYTES 0.07 10^3/uL (0.00-0.10); ADD DIFF? NO; ADD MORPH? NO; ADD SCAN? NO; ATYPICAL LYMPHOCYTE FLAG 40 (0-99); FRAGMENT RBC FLAG 0 (0-99); HEMATOCRIT 39.9 % (38.0-47.0); HEMOGLOBIN 13.4 g/dL (12.6-16.3); LEFT SHIFT FLG 0 (0-99); LIPEMIA HEMOLYSIS FLAG 80 (0-99); MEAN CELL HEMOGLOBIN 28.9 pg (27.9-34.1); MEAN CELL HEMOGLOBIN CONCENTR. 33.6 g/dL (32.4-36.7); MEAN PLATELET VOLUME 9.3 fL (8.7-11.7); PLATELET CLUMPS FLAG 10 (0-99); PLATELET COUNT 292 10^3/uL (150-400); RED BLOOD CELL COUNT 4.64 10^6/uL (4.18-5.33); RED CELL DISTRIBUTION WIDTH 12.6 % (11.5-15.2)
[2017-01-29] MEDS: CLINDAMYCIN 600 MG/DEXTROSE 50 ML IV SCH ×3 (05:06→22:15)
[2017-01-29 05:17] LABS: ALANINE AMINOTRANSFERASE 25 IU/L (9-52); ALBUMIN 2.7 g/dL (3.5-5.0); ALKALINE PHOSPHATASE 74 IU/L (38-126); ANION GAP 7 mEq/L (8-16); ASPARTATE AMINOTRANSFERASE 18 IU/L (14-46); BILIRUBIN,TOTAL 0.8 mg/dL (0.1-1.4); CALCIUM 8.5 mg/dL (8.5-10.4); CARBON DIOXIDE 25 mEq/l (22-31); CHLORIDE 108 mEq/L (97-110); CREATININE 0.8 mg/dL (0.6-1.0); GLOMERULAR FILTRATION RATE > 60; GLUCOSE 209 mg/dL (70-100); POTASSIUM 4.4 mEq/L (3.5-5.2); SODIUM 140 mEq/L (134-144); TOTAL PROTEIN 5.7 g/dL (6.3-8.2)
[2017-01-29] MEDS: VANCOMYCIN 1.5 GM in D5W 250 ML IV SCH (08:41)
--- NOTE | 2017-01-29 10:35 | SOAPPROG ---
SOAP Progress Note Assessment/Plan: Assessment/Plan: R forefoot septic foot ulcer s/p debridement POD#1 - Continue pain management - Pt will need a Beka ortho wedge post-op shoe to keep all pressure off of the ulcer - Antibiotics per ID - Okay to start Lovenox - Wet to dry dressing, okay for wound care to change 01/29/17 10:07 Subjective: Pt states her pain is improved this morning. Pt denies fever, chills, chest pain , SOB, abdominal pain, N/V/D, numbness, tingling and calf pain. Objective: Vital Signs Temp Pulse Resp BP Pulse Ox 37.1 C 75 16 147/82 H 93 01/29/17 07:57 01/29/17 07:57 01/29/17 07:57 01/29/17 07:57 01/29/17 07:57 Microbiology 01/28/17 17:00 Gram Stain - Final Foot - Tissue 01/27/17 21:55 Gram Stain - Final Toe - Swab Laboratory Results 01/29/17 04:41 01/29/17 04:41 01/28/17 01/29/17 01/30/17 05:59 05:59 05:59 Intake Total 950 2620 Output Total 305 Balance 950 2315 PT 14.9 SEC (12.0-15.0) 01/28/17 04:25 INR 1.17 (0.83-1.16) H 01/28/17 04:25 Physical Exam - Physical Exam General Appearance: alert, no apparent distress Skin: warm/dry, decubitus (Right forefoot with surrounding erythema, no streaking), other (Post-operative dressing intact RLE) Extremities: normal range of motion, non-tender, normal capillary refill, No pedal edema, No calf tenderness, No swelling, No Nelsy's sign Neuro/Psych: no motor/sensory deficits, alert, normal mood/affect ICD10 Worksheet Patient Problems: Problems Problem Status Onset Gangrene of foot Acute
--- NOTE | 2017-01-29 11:08 | HOSPPROG ---
Hospitalist Progress Note Assessment/Plan: Patient is a 56/F who presented to the Urgent care with complaint of R foot infection. She had been traveling most recently to [place]. She developed a blister on the plantar aspect of her right foot. In addition she had subjective fever prior to admission. Today is my first encounter w the patient, chart reviewed. Discussed her care with Dr Judd. acute right foot cellulitis with open wound and necrotic tissue- -s/p debridement -had been treated w cipro and clindamycin through a [facility] physician while traveling -foot xray shows subcutaneous gas under great toe -IV clindamycin and Zosyn per Infectious Disease -blood cultures -NGTD -wound vac placed today -PICC to be placed # New diagnosis of Diabetes/ Hyperglycemia -HBA1c is 10.2 on admission - she prefers no Metformin at this time -started on low dose SSI/ and added basal insulin at night (Lantus 10 units) -ADA diet -asked dietary to see # Hypoxemia/acute -increase O2 needs -will get a chest xray now for further evaluation -not tachycardic, but had recent travel -consider CTA #HTN -bp elevated -will discuss with her about treatment # obesity with a BMI of 36 # acute leukocytosis- secondary to foot cellulitis and wound # prophylaxis with Lovenox # Plan: ADA diet, insulin, chest xray Subjective: Brenna has no specific complaints. Objective: Vital Signs Temp Pulse Resp BP Pulse Ox 37.1 C 75 16 147/82 H 93 01/29/17 07:57 01/29/17 07:57 01/29/17 07:57 01/29/17 07:57 01/29/17 07:57 Microbiology 01/28/17 17:00 Gram Stain - Final Foot - Tissue 01/27/17 21:55 Gram Stain - Final Toe - Swab Laboratory Results 01/29/17 04:41 01/29/17 04:41 01/28/17 01/29/17 01/30/17 05:59 05:59 05:59 Intake Total 950 2620 Output Total 305 Balance 950 2315 PT 14.9 SEC (12.0-15.0) 01/28/17 04:25 INR 1.17 (0.83-1.16) H 01/28/17 04:25 - Physical Exam Constitutional: appears nourished, obese Eyes: PERRL Ears, Nose, Mouth, Throat: hearing normal Cardiovascular: regular rate and rhythym Respiratory: no respiratory distress, reduced air movement (bases) Gastrointestinal: normoactive bowel sounds Skin: warm Musculoskeletal: no muscle tenderness Neurologic: AAOx3 Psychiatric: interacting appropriately, not anxious ICD10 Worksheet Patient Problems: Problems Problem Status Onset Gangrene of foot Acute
--- NOTE | 2017-01-29 11:12 | PCMIDPN ---
Assessment/Plan: LEFT foot necrotizing cellulitis, myositis due to GBS s/p debridement down to tendon. Wound at base of great toe base still with some necrosis and foul smell. wound vac to be placed today. Aubrey erythema great toe, dorsum of foot (top 1/3) and over ball of foot. MRI shows possible OM of medial sesamoid --PICC line tomorrow, will need at least 2 weeks of IV - maybe longer, continue to assess radiology finding on sesamoid, may need repeat imaging --dc vancomycin, no cultures demonstrating MRSA --continue IV zosyn/clinda while await further culture maturity, clindamycin for [place] effect --may need more debridement, ortho reports planning on transfer to general surgery team. --significant concern for deeper infection --will need several more days of hospitalization, recommended talking to primary care in [place] to try to identify doctors to transfer care when stable as outpatient Microbiology 01/27 wound cx :polymicrobial gram stain; Cx GBS 01/28 Tissue cx: polymicrobial gram stain; Cx GBS 01/27 blood cx : 2 sets NGTD meds clindamycin 600mg mg IV, #1 zosyn 4.5 gm IV q6h #1 Vancomycin, #1 patient examined with wound care and coordination of care with Martina Mendoza NP Subjective: feeling okay reports foot less red today Objective: Vital Signs Temp Pulse Resp BP Pulse Ox 37.1 C 75 16 147/82 H 93 01/29/17 07:57 01/29/17 07:57 01/29/17 07:57 01/29/17 07:57 01/29/17 07:57 Microbiology 01/28/17 17:00 Gram Stain - Final Foot - Tissue 01/27/17 21:55 Gram Stain - Final Toe - Swab Laboratory Results 01/29/17 04:41 01/29/17 04:41 01/28/17 01/29/17 01/30/17 05:59 05:59 05:59 Intake Total 950 2620 Output Total 305 Balance 950 2315 ESR 48 MM/HR (0-30) H 01/28/17 04:25 C-Reactive Protein 133.9 mg/L (<10.0) H 01/28/17 04:25 - Physical Exam General Appearance: alert, no apparent distress EENT: normal ENT inspection, No scleral icterus Respiratory: lungs clear Neck: supple Cardiac/Chest: regular rate, rhythm Extremities: erythema (3.1x2.5x1cm wound on sole of foot primary under great toe , tunneling to 1x1 opening under 3rd Met head, erythema surrounding wound, entire great toe and 1/3 to 1/2 of dorsum of foot), other (exposed tendon, slight shiny appearance but most light brown) Abdomen: non-tender, soft Skin: No rash Neuro/Psych: alert, normal mood/affect, oriented x 3 - Line/s PIV Lines: other (L forearm), No drainage, No erythema - Time Spent With Patient Time Spent with Patient: greater than 35 minutes Time Spent with Patient: Greater than 35 minutes spent on this patients care, greater than 50% of time spent counseling, educating, and coordinating care regarding the above mentioned plan. ICD10 Worksheet Patient Problems: Problems Problem Status Onset Gangrene of foot Acute
--- NOTE | 2017-01-29 11:16 | GCON ---
[f rep st] CONSULTATION INPATIENT CONSULTATION DATE OF CONSULTATION: 01/28/2017 REASON FOR CONSULTATION: Draining foot ulcer, right foot. HISTORY: I have interviewed the patient and her sisters, as well as reviewed her [place] [facility] [place] [facility] and admission to the hospital floor. This data is highly suggestive of an undiagnosed diab etic peripheral neuropathy with consequent foot ulceration. The history that she relays of turning her ankle in the airport and then wearing tight shoes that ramirez bsequently caused a blister that spontaneously started to drain foul-smelling fluid is inconsistent with normal protective foot sensation. In addition, her workup in the hospital has revealed an elev ated serum glucose level with a hemoglobin A1c of 10.2. PHYSICAL EXAMINATION: Examination of her foot finds her to have reduced sensation on the plantar as pect of the foot. She does have erythema and swelling around the ankle. The ankle is stable to roxanne us and valgus stress testing and has a negative anterior drawer test. The forefoot has necrotic zoila ck skin running in the MTP flexion crease, between the MTP flexion crease and the IP joint flexion c rease and the great toe. There is a draining ulcer around the base of the 3rd metatarsal head as we ll. The surrounding skin is quite remarkable in that it is white, and the thick callosity portion d oes not have any apparent blood flow. The pulp of her great toe, however, has normal capillary refi ll, as do the lesser toes. I estimate the size of the lesion on the surface to be approximately 4 cm x 5 cm in size, running in the flexion creases of the toes at the respective MTP joints. This has been cultured previously [facility] [place]. ASSESSMENT AND PLAN: Based on the severity of this and likely diagnosis of diabetes with foul-smell ing draining foot ulcer, I think it is urgent to bring her to the operating room. I would plan for MRI evaluation to understand the magnitude and the depth of the situation. Her x-rays did show free air in the soft tissue, but I think this is more likely due to the fact that she has a draining ulc er rather than a gas-forming bacterial organism. Regardless, I will plan for urgent debridement of her foot ulcer. /[id number]/MODL
[2017-01-29] MEDS ORDERED: D50W 25 GM/50 ML SYR IVP PRN (11:56)
[2017-01-29] MEDS ORDERED: SODIUM CL NASAL 45 ML BTL EACHNARE PRN (11:59)
--- NOTE | 2017-01-29 12:00 | WOCRNPDOC ---
[facility] Advanced Assessment Note - Skin Integrity Problem, Advanced Assess Right First Toe Dressing Type: Gauze Dressing Description: Clean/Dry, Intact Exudate Amount: Moderate Exudate Characteristic(s): Serosanguinous Integumentary Issue Intervention: Dressing Changed Jovanna Wound Tissue: Erythema, Macerated, Erythema Marked by Wound RN Jovanna Wound Swelling: Moderate Wound Bed Color: Brown, Red, Yellow Wound Bed Constitution: Smooth Tissue (20%), Tendon (1.5 cm exposed in wound bed partially brown), Subcutaneous Fat (necrotic) Wound Edges: Attached Site Odor: Strong, Foul Site Measurement - Head-to-Toe Length X Width X Depth (cm): 3.1x2.5x1 Skin Integrity Problem Comment: Cleaned with wound cleanser. Mastisol jovanna wound and drape. Restore contact layer over tendon then veraflo black foam bridged to dorsal foot. Werner RN assisted with care. Vac settings with vashe intillation: 40 ml Vashe to instill for 6 min every 3.5 hours at -125 mm Hg continous suction. Vac working and instilling without leaks. Right Third Metatarsal Head Dressing Type: Gauze Dressing Description: Intact, Saturated Exudate Amount: Moderate Exudate Characteristic(s): Bloody Integumentary Issue Intervention: Dressing Changed Jovanna Wound Tissue: Erythema, Swollen, Erythema Marked by Wound RN Jovanna Wound Swelling: Mild Wound Bed Constitution: Tunneling (at 2 oclock toward 1st toe 1.5 cm) Site Measurement - Head-to-Toe Length X Width X Depth (cm): 1x1x1 Skin Integrity Problem Comment: Diabetic foot ulcer that may communicate with great toe wound. Unable to fully assess due to pain and small/tight area. Cleaned with wound cleanser and then applied skin prep jovanna wound. Hydrofera blue ready to wound bed covered with tegaderm. Dr Judd in room and assessed both wounds as well.
[2017-01-29] MEDS: GUMMY PROBIOTIC PO SCH (13:31)
[2017-01-29] MEDS: INSULIN LISPRO 100 UNIT/ML SC SCH ×2 (13:32→18:01)
[2017-01-29] MEDS: ACETAMINOPHEN 325 MG TAB PO PRN ×2 (14:57→19:58)
[2017-01-29] MEDS: FLUTICASONE NASAL 120 SPRAYS/16 GM MDI EACHNARE SCH (14:57)
[2017-01-29] MEDS: INSULIN GLARGINE 100 UNITS/ML SYRINGE SC SCH (19:58)
[2017-01-30] MEDS: PIPERACILLIN/TAZO 4.5 GM/DEX 100 ML IV SCH ×2 (05:37→13:30)
[2017-01-30] MEDS: CLINDAMYCIN 600 MG/DEXTROSE 50 ML IV SCH ×3 (05:38→21:33)
[2017-01-30] MEDS: INSULIN LISPRO 100 UNIT/ML SC SCH ×4 (07:40→18:48)
--- NOTE | 2017-01-30 07:43 | SOAPPROG ---
SOAP Progress Note Assessment/Plan: Assessment/Plan: R forefoot septic foot ulcer s/p debridement POD#2 - Continue pain management - Pt will need a Beka ortho wedge post-op shoe to keep all pressure off of the ulcer- she has ordered this from [employer] and it should be delivered tomorrow - Antibiotics per ID - Dressing changes per wound care 01/29/17 10:07 01/30/17 07:40 Subjective: Pt states she is doing well and is having minimal pain. SOB has improved. Pt denies fever, chills, chest pain, abdominal pain, N/V/D, numbness, tingling, and calf pain. Objective: Vital Signs Temp Pulse Resp BP Pulse Ox 37.1 C 76 16 152/92 H 91 L 01/30/17 04:00 01/30/17 04:00 01/30/17 04:00 01/30/17 04:00 01/30/17 04:00 Microbiology 01/27/17 21:55 Gram Stain - Final Toe - Swab Wound Culture - Final 01/28/17 17:00 Gram Stain - Final Foot - Tissue Laboratory Results 01/29/17 04:41 01/29/17 04:41 01/29/17 01/30/17 01/31/17 05:59 05:59 05:59 Intake Total 2620 250 Output Total 305 Balance 2315 250 PT 14.9 SEC (12.0-15.0) 01/28/17 04:25 INR 1.17 (0.83-1.16) H 01/28/17 04:25 Physical Exam - Physical Exam General Appearance: alert, no apparent distress Skin: normal color, warm/dry, other (Dressing and wound vac intact RLE with border of erythema outlined on the R dorsal foot) Extremities: normal range of motion, normal capillary refill, pedal edema, No calf tenderness, No swelling, No Nelsy's sign Neuro/Psych: no motor/sensory deficits, alert, normal mood/affect ICD10 Worksheet Patient Problems: Problems Problem Status Onset Gangrene of foot Acute
[2017-01-30] MEDS: FLUTICASONE NASAL 120 SPRAYS/16 GM MDI EACHNARE SCH (08:25)
[2017-01-30] MEDS: ENOXAPARIN 40 MG/0.4 ML SYR SC SCH (08:26)
[2017-01-30] MEDS: GUMMY PROBIOTIC PO SCH (08:29)
[2017-01-30] MEDS ORDERED: ALTEPLASE 2 MG VIAL IVP PRN (09:24)
--- NOTE | 2017-01-30 10:36 | PCMIDPN ---
Assessment/Plan: LEFT foot severe necrotizing cellulitis, myositis due to GBS s/p debridement down to tendon. Infections in the presence of newly diagnosed diabetes. Clinically stable but have significant concern for need for more debridement yesterday wound at base of great toe base still with some necrosis and foul smell. Aubrey erythema great toe, dorsum of foot (top 1/3) - essentially unchanged from yesterday new maceration under wound vac over ball of foot. 1) specific discussed potential need for great toe amp, transmet as well as further debridement. Also discussed likely minimum IV antibiotic course of 2 weeks but may be longer. 2) likely can narrow to cefazolin from Zosyn soon, but with polymicrobial gram stain will await another day or so of culture maturity. Do not need PsA dosing of Zosyn, step down to 3.375mg IV q6hrs. 3) Dr Noble consulted today and will perform further debridement on the left foot. 4) PICC line placed today Microbiology 01/27 wound cx :polymicrobial gram stain; Cx GBS 01/28 Tissue cx: polymicrobial gram stain; Cx GBS 01/27 blood cx : 2 sets NGTD meds clindamycin 600mg mg IV, #2 zosyn 4.5 gm IV q6h #2 MRI also shows possible OM of medial sesamoid Care was coordinated with Dr Maier, Dr. Michelle Noble and Martina Mendoza, ANDREW Subjective: concerned that there is not high enough concern about surgical needs feels like erythema on foot is not better no diarrhea Objective: Vital Signs Temp Pulse Resp BP Pulse Ox 37.6 C 94 20 151/88 H 92 01/30/17 07:52 01/30/17 07:52 01/30/17 07:52 01/30/17 07:52 01/30/17 07:52 Microbiology 01/27/17 21:55 Gram Stain - Final Toe - Swab Wound Culture - Final 01/28/17 17:00 Gram Stain - Final Foot - Tissue Laboratory Results 01/29/17 04:41 01/29/17 04:41 01/29/17 01/30/17 01/31/17 05:59 05:59 05:59 Intake Total 2620 250 Output Total 305 Balance 2315 250 ESR 48 MM/HR (0-30) H 01/28/17 04:25 C-Reactive Protein 133.9 mg/L (<10.0) H 01/28/17 04:25 - Physical Exam General Appearance: alert, no apparent distress EENT: No scleral icterus Respiratory: lungs clear Neck: supple Cardiac/Chest: regular rate, rhythm Extremities: erythema (Left dorsum of foot 1/3, great toe circumferentially. Defect under great toe and part of 2nd toe with some necrosis in the base) Abdomen: non-tender, soft Skin: warm/dry (Coordinating care with surgical teams, explaining potential need for amputation, severity of illness and need to remain locally until infection managed appropriately.), No rash Neuro/Psych: alert, normal mood/affect, oriented x 3 - Time Spent With Patient Time Spent with Patient: greater than 35 minutes (coordination of care with Darrion Srinivasan. Education about severity of infection, need for further debridement and continued IV antibiotic therapy. Discussed risks and benefits of PICC line.) Time Spent with Patient: Greater than 35 minutes spent on this patients care, greater than 50% of time spent counseling, educating, and coordinating care regarding the above mentioned plan. ICD10 Worksheet Patient Problems: Problems Problem Status Onset Gangrene of foot Acute
--- NOTE | 2017-01-30 11:06 | WOCRNPDOC ---
WOCRN Advanced Assessment Note - Skin Integrity Problem, Advanced Assess Right First Toe Dressing Type: Black Vac Foam (x1), Wound Vac Dressing Description: Clean/Dry, Intact Integumentary Issue Intervention: Dressing Removed Jovanna Wound Tissue: Macerated (extreem) Wound Bed Constitution: Tendon (50% necrotic), Mixed Loose & Adhered Slough/ Eschar Skin Integrity Problem Comment: Took down vac. Dr Noble to see. Packed with moist to dry. Right Third Metatarsal Head Dressing Type: Hydrofera Blue Ready, Tegaderm Film Integumentary Issue Intervention: Dressing Removed Jovanna Wound Tissue: Macerated Skin Integrity Problem Comment: Removed vac dressing as area had been filling with fluid from veraflo from great toe and jovanna wound tissue was very macerated. Covered with [place]. Dr Noble to assess. Pt to OR later today. Wound care will round again Wednesday 01/31.
[2017-01-30] MEDS ORDERED: BUPIVACAINE 0.5% 30 ML SDV ONE (11:55)
[2017-01-30] MEDS ORDERED: D5W 1/2 NS 1,000 ML IV SCH (13:45)
--- NOTE | 2017-01-30 15:18 | HOSPPROG ---
Hospitalist Progress Note Assessment/Plan: Patient is a 56/F who presented to the Urgent care with complaint of R foot infection. She had been traveling most recently to [place]. She developed a blister on the plantar aspect of her right foot. In addition she had subjective fever prior to admission. Reviewed her care with Dr Judd # acute right foot necrotizing cellulitis/ Myositis -s/p debridement -MRI concerning for poss osteomyelitis or sesamoiditis of the medial sesamoid -IV clindamycin and Zosyn per Infectious Disease -blood cultures -NGTD -PICC placed today -OR with Dr Noble to day for further debridement # New diagnosis of Diabetes/ Hyperglycemia -HBA1c is 10.2 on admission - she prefers no Metformin at this time -started on low dose SSI/ and added basal insulin at night (Lantus 10 units) - will start iv fluids with D5 while NPO -ADA diet -glucose improved today # Hypoxemia/acute -better today -use of IS #HTN -bp elevated -will discuss with her about treatment tomorrow # obesity with a BMI of 36 # acute leukocytosis- secondary to foot cellulitis and wound # prophylaxis with Lovenox # Plan: OR this afternoon/ appreciate Dr Noble seeing her Subjective: Brenna is not c/o pain/ appreciative of care. Would like another room with a better view. Objective: Vital Signs Temp Pulse Resp BP Pulse Ox 37.3 C 76 15 149/99 H 91 L 01/30/17 12:14 01/30/17 12:14 01/30/17 12:14 01/30/17 12:14 01/30/17 12:14 Microbiology 01/28/17 17:00 Gram Stain - Final Foot - Tissue 01/27/17 21:55 Gram Stain - Final Toe - Swab Wound Culture - Final Laboratory Results 01/29/17 04:41 01/29/17 04:41 01/29/17 01/30/17 01/31/17 05:59 05:59 05:59 Intake Total 2620 250 Output Total 305 Balance 2315 250 PT 14.9 SEC (12.0-15.0) 01/28/17 04:25 INR 1.17 (0.83-1.16) H 01/28/17 04:25 - Physical Exam Constitutional: no apparent distress, obese Eyes: PERRL Ears, Nose, Mouth, Throat: hearing normal Cardiovascular: regular rate and rhythym Respiratory: no respiratory distress Gastrointestinal: normoactive bowel sounds Skin: warm, normal color Musculoskeletal: no muscle tenderness Neurologic: AAOx3 Psychiatric: interacting appropriately, not anxious ICD10 Worksheet Patient Problems: Problems Problem Status Onset Gangrene of foot Acute
[2017-01-30] MEDS ORDERED: MIDAZOLAM 2 MG/2 ML VIAL ONE (16:00)
[2017-01-30] MEDS ORDERED: LIDOCAINE 2% 5 ML SDV ONE (16:05)
--- NOTE | 2017-01-30 16:05 | GCON ---
[f rep st] CONSULTATION DATE OF CONSULTATION: 01/30/2017 REQUESTING PHYSICIAN: Yuri Maier MD. REASON FOR CONSULTATION: Cellulitis and devitalized tissue, right great toe. HISTORY OF PRESENT ILLNESS: The patient is a 56-year-old woman with newly-recognized diabetes, who reports that [place] at an airport. Her foot was then swollen, and then she developed a blister on the plantar aspect of her foot. She then developed fever. The blister subsequently broke open and there was foul-smelling fluid. The edema and erythema continued, and she originally presen kasey to a clinic in [place], and then was ultimately admitted to [facility]. Here, she had an x -ray of her foot, which showed soft tissue edema. She had an MRI performed on January 28, 2017, which showed cellulitis and myositis. There was question of osteomyelitis or inflammation of the sesamoid bone. Dr. Maier took her to the operating room, and he reports that there was complete liquefaction o f the fat in the area. It has grown group B strep from the wound. Her blood cultures are negative. D espite debridement and antibiotics, there has only been marginal improvement in the actual wound. PAST MEDICAL HISTORY: 1. Obesity. 2. Diabetes mellitus. PAST SURGICAL HISTORY: None. FAMILY HISTORY: Significant for CHF in her mother and a stroke in her father. SOCIAL HISTORY: She works in [employer]. She lives in [place], but is able to work brand[employer]. She has never smoked. She uses alcohol on occasion. REVIEW OF SYSTEMS: Positive for being appropriately tearful with this situation and pain on the miya t. PHYSICAL EXAMINATION: VITAL SIGNS: 37.3, 76,149/99, 15, 91% on 2 L. GENERAL: Pleasant, well-nourish ed woman sitting up in bed. Sister is at bedside. HEENT: Normocephalic. No gross hearing deficit. Mu cous membranes moist. Pupils equal and round. No scleral icterus. LUNGS: Clear to auscultation bilat erally. No increased work of breathing. CARDIAC: Regular rate. EXTREMITIES: No peripheral edema. I d id not unwrap her wound, but I did see a picture that showed dry necrotic tendon on the base of it. I can see the erythema around the wound. She does have palpable dorsalis pedis pulses. LABORATORY: Results reviewed. On admission, her white count was 12.98; on the was 11.38. Her h emoglobin A1c is 10.2. Her CRP is elevated. Her kidney function is normal. Otherwise, per HPI. IMPRESSION AND PLAN: The patient is a 56-year-old woman with group B strep wound infection. I will take her to the operating room for debridement of skin and soft tissue, and possible amputation of t he great toe. I discussed that if there was any chance of saving the toe that I would do this. We di scussed that she will have an open wound after. She may need a wound VAC. We will be able to plan he r return to [place] after the operating room. /[id number]/MODL
[2017-01-30] MEDS ORDERED: PROPOFOL 200 MG/20 ML VIAL ONE (16:06)
[2017-01-30] MEDS ORDERED: fentaNYL 100 MCG/2 ML INJ ONE ×2 (16:06→17:40)
--- NOTE | 2017-01-30 17:03 | POSTOPPROG ---
Post Op Note Date of Operation: 01/30/17 Surgeon: Michelle Noble Anesthesiologist: keshav Anesthesia: GET(General Endotracheal) Pre-op Diagnosis: dfu Post-op Diagnosis: same Indication: 56 yo new diabetes, infected plantar wound Procedure: debride skin soft tissue tendon 7x4x1 cm Inf/Abcess present in the surg proc area at time of surgery?: Yes Depth: Deep Incisional (Fascial) EBL: Minimal Drains: Wound Vac
--- NOTE | 2017-01-30 17:30 | GOP ---
[f rep st] OPERATIVE REPORT DATE OF OPERATION: 01/30/2017 SURGEON: Michelle Noble MD ANESTHESIA: General. ANESTHESIOLOGIST: Dr. Onel Brumfield. PREOPERATIVE DIAGNOSIS: Diabetic foot infection. POSTOPERATIVE DIAGNOSIS: Diabetic foot infection. PROCEDURE PERFORMED: Debridement of skin, soft tissue, tendon right foot. FINDINGS: Tendons exposed. The wound measures 7 x 4 x 1 cm. There is a good blood supply to the wound. ESTIMATED BLOOD LOSS: 10 cc. INDICATIONS: The patient is a 56-year-old woman who is a newly diagnosed diabetic. She developed a wound on the plantar surface of her toe and then developed fevers and had severe cellulitis. It has been previously debrided, although there is still some cellulitis and necrotic tissue remaining. DESCRIPTION OF PROCEDURE: The patient was brought into the operating room, placed supine on the table, and general anesthesia was administered. Her right foot was prepped and draped in the usual sterile fashion. I explored the wound , and the soft tissue infection easily traveled over to the base of the 4th metatarsal head. I opened up this tissue tract and debrided all of the infected tissue. It also tracked around the base of the 2nd toe, through the interdigit space, as well as laterally along the great toe. I debrided a portion of the tendon. Hemostasis was achieved. I replaced a wound VAC. There was not overt bone exposed. She was awakened in the operating room, extubated, and transferred to PACU in stable condition. /[id number]/MODL MTDD
[2017-01-30] MEDS: PIPERACILLIN/TAZO 3.375 GM/DEX 50 ML IV SCH ×2 (18:44→23:13)
[2017-01-30] MEDS: INSULIN GLARGINE 100 UNITS/ML SYRINGE SC SCH (21:42)
[2017-01-30] MEDS: HYDROCODONE/APAP 5/325 TAB PO PRN (21:46)
--- NOTE | 2017-01-31 05:35 | SOAPPROG ---
SOAP Progress Note Assessment/Plan: Assessment/Plan: Acute right foot necrotizing cellulitis/ Myositis -s/p debridement x2 (POD#1 since last debridement by Dr. Noble), wound vac in place -MRI was concerning for poss osteomyelitis or sesamoiditis of the medial sesamoid -PICC line placed yesterday, on IV clindamycin and Zosyn per Infectious Disease -blood cultures -NGTD -Pt will likely return home to [place] after d/c 01/31/17 05:33 01/31/17 05:36 Subjective: Pt seen at bedside, awoken for exam. No complaints of significant pain today. States she is tolerating her diet and medications well. No additional concerns or complaints at this time. Objective: Vital Signs Temp Pulse Resp BP Pulse Ox 37.3 C 69 16 141/70 H 92 01/31/17 04:00 01/31/17 04:00 01/31/17 04:00 01/31/17 04:00 01/31/17 04:00 Microbiology 01/28/17 17:00 Gram Stain - Final Foot - Tissue Laboratory Results 01/29/17 04:41 01/29/17 04:41 01/29/17 01/30/17 01/31/17 05:59 05:59 05:59 Intake Total 2620 250 1300 Output Total 305 10 Balance 2315 250 1290 PT 14.9 SEC (12.0-15.0) 01/28/17 04:25 INR 1.17 (0.83-1.16) H 01/28/17 04:25 [place] for exam today, NAD, non-toxic in appearance, appropriate mood and affect , A&Ox3. Exam of RLE reveals intact surgical dressings and wound vac. Post calves are NTTP, no palpable vascular cords, negative Nelsy's bilat. ICD10 Worksheet Patient Problems: Problems Problem Status Onset Gangrene of foot Acute
[2017-01-31] MEDS: PIPERACILLIN/TAZO 3.375 GM/DEX 50 ML IV SCH ×4 (05:45→23:52)
[2017-01-31] MEDS: CLINDAMYCIN 600 MG/DEXTROSE 50 ML IV SCH ×2 (05:47→15:28)
[2017-01-31] MEDS: GUMMY PROBIOTIC PO SCH (08:48)
[2017-01-31] MEDS: FLUTICASONE NASAL 120 SPRAYS/16 GM MDI EACHNARE SCH (08:49)
[2017-01-31] MEDS: INSULIN LISPRO 100 UNIT/ML SC SCH ×3 (08:50→18:22)
[2017-01-31] MEDS: ENOXAPARIN 40 MG/0.4 ML SYR SC SCH (08:50)
--- NOTE | 2017-01-31 09:46 | SOAPPROG ---
SOAP Progress Note Assessment/Plan: Assessment: 56 yo F s/p debridement of R plantar foot wound Wound vac - will change dressing tomorrow and place amniofill Continue iv antibiotics Case management to authorize outpatient wound vac Seen with Dr. Noble O: laying in bed, comfortable, NAD, sister at bedside Supplemental O2 no increased WOB No peripheral edema Erythema improving Wound vac to suction 01/31/17 17:10 Objective: Vital Signs Temp Pulse Resp BP Pulse Ox 37.1 C 64 16 134/76 H 95 01/31/17 07:25 01/31/17 07:25 01/31/17 07:25 01/31/17 07:25 01/31/17 07:25 Microbiology 01/28/17 17:00 Gram Stain - Final Foot - Tissue Laboratory Results 01/29/17 04:41 01/29/17 04:41 01/30/17 01/31/17 02/01/17 05:59 05:59 05:59 Intake Total 250 1300 Output Total 10 Balance 250 1290 PT 14.9 SEC (12.0-15.0) 01/28/17 04:25 INR 1.17 (0.83-1.16) H 01/28/17 04:25 ICD10 Worksheet Patient Problems: Problems Problem Status Onset Gangrene of foot Acute
[2017-01-31] MEDS ORDERED: MELATONIN 3 MG TAB PO PRN (12:09)
[2017-01-31] MEDS ORDERED: TEMAZEPAM 15 MG CAP PO PRN (12:09)
--- NOTE | 2017-01-31 14:04 | HOSPPROG ---
Hospitalist Progress Note Assessment/Plan: Patient is a 56/F who presented to the Urgent care with complaint of R foot infection. She had been traveling most recently to [place]. She developed a blister on the plantar aspect of her right foot. In addition she had subjective fever prior to admission. # acute right foot necrotizing cellulitis/ Myositis -s/p debridement x 2 -wound vac in place -MRI concerning for poss osteomyelitis or sesamoiditis of the medial sesamoid -IV clindamycin and Zosyn per Infectious Disease -blood cultures -NGTD -PICC placed # New diagnosis of Diabetes/ Hyperglycemia -HBA1c is 10.2 on admission - she prefers no Metformin at this time -started on low dose SSI/ and added basal insulin at night (Lantus 10 units) -ADA diet # Hypoxemia/acute -increase O2 needs today -suspect this is atelectasis/ encouraged IS #nasal congestion Flonase has helped a bit/ Sudafed ordered #HTN -bp has improved # obesity with a BMI of 36 # acute leukocytosis- secondary to foot cellulitis and wound # prophylaxis with Lovenox # Plan: continue current treatment/ appreciate ID and surgical team Subjective: Brenna has no complaints. Objective: Vital Signs Temp Pulse Resp BP Pulse Ox 37.1 C 72 20 135/62 H 95 01/31/17 07:25 01/31/17 11:29 01/31/17 11:29 01/31/17 11:29 01/31/17 11:29 Microbiology 01/28/17 17:00 Gram Stain - Final Foot - Tissue Laboratory Results 01/29/17 04:41 01/29/17 04:41 01/30/17 01/31/17 02/01/17 05:59 05:59 05:59 Intake Total 250 1300 Output Total 10 Balance 250 1290 PT 14.9 SEC (12.0-15.0) 01/28/17 04:25 INR 1.17 (0.83-1.16) H 01/28/17 04:25 - Physical Exam Constitutional: not in pain, obese Eyes: PERRL Ears, Nose, Mouth, Throat: hearing normal Cardiovascular: regular rate and rhythym Respiratory: no respiratory distress, reduced air movement (bases) Gastrointestinal: normoactive bowel sounds Skin: warm, normal color, other (wound vac in place on right foot/area around insertion of this with erythema) Musculoskeletal: generalized weakness Neurologic: AAOx3 Psychiatric: interacting appropriately, not anxious ICD10 Worksheet Patient Problems: Problems Problem Status Onset Gangrene of foot Acute
--- NOTE | 2017-01-31 19:51 | PCMIDPN ---
Assessment/Plan: Assessment/Plan: * Right lower extremity severe cellulitis with necrosis in myositis due to group B Streptococcus/Streptococcus anginosus: Status post debridement x2. Wound VAC now in place. Residual erythema over great toe and dorsum of foot medially. Will continue Zosyn pending additional culture data with plans to transition to ceftriaxone if no other organisms isolated. Will discontinue clindamycin as suspect benefit targeting toxin production has been achieved. Will review surgical findings with Dr. Noble regarding any areas of suspicion for osteomyelitis as this will impact duration of antibiotic therapy. 01/31/17 19:48 Subjective: Status post repeat debridement of right foot yesterday. Less pain in foot present. Intermittent loose stool present but no diarrhea. Objective: Vital Signs Temp Pulse Resp BP Pulse Ox 37.2 C 70 20 140/66 H 93 01/31/17 16:04 01/31/17 16:04 01/31/17 16:04 01/31/17 16:04 01/31/17 16:04 Microbiology 01/28/17 17:00 Gram Stain - Final Foot - Tissue Laboratory Results 01/29/17 04:41 01/29/17 04:41 01/30/17 01/31/17 02/01/17 05:59 05:59 05:59 Intake Total 250 1300 100 Output Total 10 Balance 250 1290 100 ESR 48 MM/HR (0-30) H 01/28/17 04:25 C-Reactive Protein 133.9 mg/L (<10.0) H 01/28/17 04:25 Zosyn # 3 Clindamycin # 3 Operative culture with growth of group B Streptococcus and Streptococcus anginosus - Physical Exam General Appearance: alert, no apparent distress EENT: No scleral icterus Extremities: inflammation (Right foot with wound VAC in place; erythema over dorsum of great toe and medial foot with mild warmth and tenderness) Abdomen: non-tender, No distended Lymphatic: other (No right lower extremity lymphangitis) ICD10 Worksheet Patient Problems: Problems Problem Status Onset Gangrene of foot Acute
[2017-01-31] MEDS: INSULIN GLARGINE 100 UNITS/ML SYRINGE SC SCH (21:31)
[2017-02-01] MEDS: PIPERACILLIN/TAZO 3.375 GM/DEX 50 ML IV SCH (05:42)
[2017-02-01] MEDS: ENOXAPARIN 40 MG/0.4 ML SYR SC SCH (07:41)
[2017-02-01] MEDS: FLUTICASONE NASAL 120 SPRAYS/16 GM MDI EACHNARE SCH (07:42)
[2017-02-01] MEDS: GUMMY PROBIOTIC PO SCH (07:43)
[2017-02-01] MEDS: INSULIN LISPRO 100 UNIT/ML SC SCH ×3 (09:47→18:12)
--- NOTE | 2017-02-01 10:34 | PCMIDPN ---
Assessment/Plan: Assessment/Plan: * Right lower extremity severe cellulitis with necrosis in myositis due to group B Streptococcus/Streptococcus anginosus: Cultures currently without anaerobic growth. Therefore, will change Zosyn to ceftriaxone 2 g IV daily. Wound findings reviewed with Dr. Noble today noting that there is thin layer of tissue overlying joint. Based on this finding, will plan for 4 weeks of IV antibiotic therapy. Erythema over great toe and medial foot decreased. * Diarrhea: Likely antibiotic associated. Will observe response to discontinuation of Zosyn. If persists, will need to assess for C difficile. 02/01/17 10:31 Subjective: Patient complains of diarrhea this a.m.. No abdominal pain. Objective: Vital Signs Temp Pulse Resp BP Pulse Ox 36.9 C 71 17 139/73 H 93 02/01/17 07:22 02/01/17 07:22 02/01/17 07:22 02/01/17 07:22 02/01/17 07:22 Microbiology 01/28/17 17:00 Gram Stain - Final Foot - Tissue Laboratory Results 01/29/17 04:41 01/29/17 04:41 01/31/17 02/01/17 02/02/17 05:59 05:59 05:59 Intake Total 1300 300 Output Total 10 Balance 1290 300 ESR 48 MM/HR (0-30) H 01/28/17 04:25 C-Reactive Protein 133.9 mg/L (<10.0) H 01/28/17 04:25 Zosyn # 4 Foot cultures with growth of group B Streptococcus and Streptococcus anginosus Blood cultures x2 no growth - Physical Exam General Appearance: alert, no apparent distress EENT: No scleral icterus Extremities: inflammation (Right foot examined during wound VAC change by Dr. Noble; small area of [place] tissue around tendons superiorly; no residual necrosis ; erythema over great toe and medial foot less prominent) Abdomen: non-tender, No distended - Line/s RUE PICC Lines: No drainage, No erythema ICD10 Worksheet Patient Problems: Problems Problem Status Onset Gangrene of foot Acute
--- NOTE | 2017-02-01 11:34 | SOAPPROG ---
SOAP Progress Note Assessment/Plan: Assessment: s/p debridement skin, soft tissue, bone, tendon on 01/30 for dfu Wound vac in place Will need wound vac on discharge Will change vac on friday S: Pain contolled 95% healthy bleeding granulation tissue. Minimal erythema when vac is off Plan: 02/01/17 11:32 Objective: Vital Signs Temp Pulse Resp BP Pulse Ox 36.9 C 71 17 139/73 H 93 02/01/17 07:22 02/01/17 07:22 02/01/17 07:22 02/01/17 07:22 02/01/17 07:22 Microbiology 01/28/17 17:00 Gram Stain - Final Foot - Tissue Laboratory Results 01/29/17 04:41 01/29/17 04:41 01/31/17 02/01/17 02/02/17 05:59 05:59 05:59 Intake Total 1300 300 Output Total 10 Balance 1290 300 PT 14.9 SEC (12.0-15.0) 01/28/17 04:25 INR 1.17 (0.83-1.16) H 01/28/17 04:25 ICD10 Worksheet Patient Problems: Problems Problem Status Onset Gangrene of foot Acute
[2017-02-01] MEDS: ACETAMINOPHEN 325 MG TAB PO PRN (11:43)
[2017-02-01] MEDS: cefTRIAXone 2 GM in D5W 50 ML IV SCH (11:44)
[2017-02-01] MEDS: PSEUDOEPHEDRINE HCL 30 MG TAB PO PRN ×2 (12:42→21:22)
[2017-02-01] MEDS ORDERED: ACETAMINOPHEN/ASA/CAFFEINE 1 EACH TAB PO PRN (14:48)
--- NOTE | 2017-02-01 15:00 | HOSPPROG ---
Hospitalist Progress Note Assessment/Plan: Patient is a 56/F who presented to the Urgent care with complaint of R foot infection. She had been traveling most recently to [place]. She developed a blister on the plantar aspect of her right foot. In addition she had subjective fever prior to admission. Reviewed her care with Dr Francis. # acute right foot necrotizing cellulitis/ Myositis -s/p debridement x 2 -wound vac in place -MRI concerning for poss osteomyelitis or sesamoiditis of the medial sesamoid -abx changed to ceftriaxone/will need 4 weeks -blood cultures -NGTD -PICC placed # New diagnosis of Diabetes/ Hyperglycemia -HBA1c is 10.2 on admission - she prefers no Metformin at this time -started on low dose SSI/ and added basal insulin at night (Lantus 10 units) -ADA diet -slowly increasing Lantus # Hypoxemia/acute -increase O2 needs today -suspect this is atelectasis/ encouraged IS #nasal congestion with associated headache Excedrin added if needed Flonase has helped a bit/ Sudafed ordered #HTN -bp has improved # obesity with a BMI of 36 # acute leukocytosis- secondary to foot cellulitis and wound # prophylaxis with Lovenox # Plan: continue current treatment/ trial of Excedrin for headaches Subjective: Brenna is in good spirits. Objective: Vital Signs Temp Pulse Resp BP Pulse Ox 36.9 C 71 17 139/73 H 93 02/01/17 07:22 02/01/17 07:22 02/01/17 07:22 02/01/17 07:22 02/01/17 07:22 Microbiology 01/28/17 17:00 Gram Stain - Final Foot - Tissue Laboratory Results 01/29/17 04:41 01/29/17 04:41 01/31/17 02/01/17 02/02/17 05:59 05:59 05:59 Intake Total 1300 300 Output Total 10 Balance 1290 300 PT 14.9 SEC (12.0-15.0) 01/28/17 04:25 INR 1.17 (0.83-1.16) H 01/28/17 04:25 - Physical Exam Constitutional: no apparent distress, appears nourished Eyes: PERRL Ears, Nose, Mouth, Throat: hearing normal Cardiovascular: regular rate and rhythym Respiratory: no respiratory distress, reduced air movement Skin: warm, other (wound vac on right foot) Neurologic: AAOx3 Psychiatric: interacting appropriately, not anxious ICD10 Worksheet Patient Problems: Problems Problem Status Onset Gangrene of foot Acute
[2017-02-01] MEDS: IPRATROPIUM/ALBUTEROL 3 ML DEYVIAL IH SCH (17:11)
[2017-02-01] MEDS: INSULIN GLARGINE 100 UNITS/ML SYRINGE SC SCH (20:56)
[2017-02-02] MEDS: IPRATROPIUM/ALBUTEROL 3 ML DEYVIAL IH SCH ×3 (00:40→10:41)
[2017-02-02] MEDS: INSULIN LISPRO 100 UNIT/ML SC SCH ×3 (09:30→17:56)
[2017-02-02] MEDS: cefTRIAXone 2 GM in D5W 50 ML IV SCH (09:49)
[2017-02-02] MEDS: ENOXAPARIN 40 MG/0.4 ML SYR SC SCH (09:49)
[2017-02-02] MEDS: FLUTICASONE NASAL 120 SPRAYS/16 GM MDI EACHNARE SCH (09:56)
[2017-02-02] MEDS: GUMMY PROBIOTIC PO SCH (09:57)
--- NOTE | 2017-02-02 11:50 | SOAPPROG ---
SOAP Progress Note Assessment/Plan: Assessment: s/p debridement skin, soft tissue, bone, tendon on 01/30 for dfu Wound vac in place Will need wound vac on discharge Will change vac on friday No showering while has wound vac S: Pain contolled Erythema improved today W[place] to suction Less tender by plantar surface of foot Plan: 02/01/17 11:32 02/02/17 11:49 Objective: Vital Signs Temp Pulse Resp BP Pulse Ox 37.1 C 80 16 159/82 H 91 L 02/02/17 07:34 02/02/17 07:34 02/02/17 07:34 02/02/17 07:34 02/02/17 07:34 Microbiology 01/28/17 17:00 Gram Stain - Final Foot - Tissue Laboratory Results 01/29/17 04:41 01/29/17 04:41 02/01/17 02/02/17 02/03/17 05:59 05:59 05:59 Intake Total 300 1750 Balance 300 1750 PT 14.9 SEC (12.0-15.0) 01/28/17 04:25 INR 1.17 (0.83-1.16) H 01/28/17 04:25 ICD10 Worksheet Patient Problems: Problems Problem Status Onset Gangrene of foot Acute
--- NOTE | 2017-02-02 15:14 | HOSPPROG ---
Hospitalist Progress Note Assessment/Plan: Patient is a 56/F who presented to the Urgent care with complaint of R foot infection. She had been traveling most recently to [place]. She developed a blister on the plantar aspect of her right foot. In addition she had subjective fever prior to admission. Dr Francis and I met with the patient and her 2 sisters. # acute right foot necrotizing cellulitis/ Myositis -s/p debridement x 2 -wound vac in place/Dr Noble to change tomorrow -MRI concerning for poss osteomyelitis or sesamoiditis of the medial sesamoid -abx changed to ceftriaxone/will need 4 weeks -blood cultures -NGTD -PICC placed # New diagnosis of Diabetes/ Hyperglycemia -HBA1c is 10.2 on admission - she prefers no Metformin at this time -started on low dose SSI/ and added basal insulin at night (Lantus 10 units) -ADA diet -slowly increasing Lantus # Hypoxemia/acute -increase O2 needs today -suspect this is atelectasis/ encouraged IS #loose stools had 2 bouts today will follow #nasal congestion with associated headache Excedrin added if needed Flonase has helped a bit/ Sudafed ordered #HTN -bp has improved # obesity with a BMI of 36 # acute leukocytosis- secondary to foot cellulitis and wound # prophylaxis with Lovenox # Plan: continue current treatment Subjective: Brenna has no complaints/ misses her dog. Objective: Vital Signs Temp Pulse Resp BP Pulse Ox 37.1 C 80 16 159/82 H 91 L 02/02/17 07:34 02/02/17 07:34 02/02/17 07:34 02/02/17 07:34 02/02/17 07:34 Microbiology 01/28/17 17:00 Gram Stain - Final Foot - Tissue Laboratory Results 01/29/17 04:41 01/29/17 04:41 02/01/17 02/02/17 02/03/17 05:59 05:59 05:59 Intake Total 300 1750 Balance 300 1750 PT 14.9 SEC (12.0-15.0) 01/28/17 04:25 INR 1.17 (0.83-1.16) H 01/28/17 04:25 - Physical Exam Constitutional: no apparent distress, appears nourished, not in pain Eyes: PERRL Ears, Nose, Mouth, Throat: hearing normal Cardiovascular: regular rate and rhythym Respiratory: no respiratory distress, other (few crackles bibasilar) Skin: warm, other (wound vac in place on right foot, some erythema at big toe tip) Neurologic: AAOx3 Psychiatric: interacting appropriately ICD10 Worksheet Patient Problems: Problems Problem Status Onset Gangrene of foot Acute
--- NOTE | 2017-02-02 16:59 | PCMIDPN ---
Assessment/Plan: Assessment/Plan: * Right lower extremity severe cellulitis with necrosis in myositis due to group B Streptococcus/Streptococcus anginosus: Continue ceftriaxone 2 g IV daily. Anticipate 4 week course of therapy but ultimate duration may be dependent on clinical course. Continues with wound VAC under the supervision of Dr. Noble. * Diarrhea: Likely antibiotic associated. Less prominent today. Continue to observe without further investigation in less becomes more problematic at which point C difficile testing would be warranted. 02/02/17 16:57 Subjective: Patient notes 2 episodes of diarrhea today. 1 large volume and 1 small volume. No abdominal pain or cramps. Objective: Vital Signs Temp Pulse Resp BP Pulse Ox 37.1 C 80 16 159/82 H 91 L 02/02/17 07:34 02/02/17 07:34 02/02/17 07:34 02/02/17 07:34 02/02/17 07:34 Microbiology 01/28/17 17:00 Gram Stain - Final Foot - Tissue Laboratory Results 01/29/17 04:41 01/29/17 04:41 02/01/17 02/02/17 02/03/17 05:59 05:59 05:59 Intake Total 300 1750 Balance 300 1750 ESR 48 MM/HR (0-30) H 01/28/17 04:25 C-Reactive Protein 133.9 mg/L (<10.0) H 01/28/17 04:25 Ceftriaxone # 2 Antibiotics # 5 - Physical Exam General Appearance: alert, no apparent distress EENT: No scleral icterus Extremities: inflammation (Wound VAC in place; erythema primarily localized to distal portion of great toe with resolution more proximally and over medial foot ) Abdomen: non-tender, No distended ICD10 Worksheet Patient Problems: Problems Problem Status Onset Gangrene of foot Acute
[2017-02-02] MEDS: INSULIN GLARGINE 100 UNITS/ML SYRINGE SC SCH (22:23)
[2017-02-03 05:48] LABS: % IMMATURE GRANULYOCYTES 0.4 % (0.0-1.1); ABSOLUTE IMMATURE GRANULOCYTES 0.04 10^3/uL (0.00-0.10); ADD DIFF? NO; ADD MORPH? NO; ADD SCAN? NO; ATYPICAL LYMPHOCYTE FLAG 10 (0-99); FRAGMENT RBC FLAG 0 (0-99); HEMOGLOBIN 14.7 g/dL (12.6-16.3); LEFT SHIFT FLG 0 (0-99); LIPEMIA HEMOLYSIS FLAG 90 (0-99); MEAN CELL HEMOGLOBIN 29.5 pg (27.9-34.1); MEAN CELL HEMOGLOBIN CONCENTR. 34.2 g/dL (32.4-36.7); MEAN CELL VOLUME 86.2 fL (81.5-99.8); MEAN PLATELET VOLUME 9.5 fL (8.7-11.7); PLATELET CLUMPS FLAG 0 (0-99); PLATELET COUNT 334 10^3/uL (150-400); RED BLOOD CELL COUNT 4.99 10^6/uL (4.18-5.33); RED CELL DISTRIBUTION WIDTH 12.4 % (11.5-15.2)
[2017-02-03 05:55] LABS: ALANINE AMINOTRANSFERASE 25 IU/L (9-52); ALBUMIN 3.3 g/dL (3.5-5.0); ALKALINE PHOSPHATASE 79 IU/L (38-126); ANION GAP 9 mEq/L (8-16); ASPARTATE AMINOTRANSFERASE 21 IU/L (14-46); BILIRUBIN,TOTAL 0.8 mg/dL (0.1-1.4); CARBON DIOXIDE 28 mEq/l (22-31); CHLORIDE 106 mEq/L (97-110); CREATININE 0.7 mg/dL (0.6-1.0); GLOMERULAR FILTRATION RATE > 60; GLUCOSE 149 mg/dL (70-100); POTASSIUM 3.9 mEq/L (3.5-5.2); SODIUM 143 mEq/L (134-144)
[2017-02-03 07:54] VITALS: BP 164/97; PULSE 79; RESP 15; TEMP 98.4; O2SAT 92
[2017-02-03] MEDS: FLUTICASONE NASAL 120 SPRAYS/16 GM MDI EACHNARE SCH (08:22)
[2017-02-03] MEDS: ENOXAPARIN 40 MG/0.4 ML SYR SC SCH (08:24)
[2017-02-03] MEDS: GUMMY PROBIOTIC PO SCH (08:24)
[2017-02-03] MEDS: cefTRIAXone 2 GM in D5W 50 ML IV SCH (08:24)
[2017-02-03] MEDS: INSULIN LISPRO 100 UNIT/ML SC SCH ×2 (09:43→12:23)
--- NOTE | 2017-02-03 09:57 | PDIAF ---
- Diagnosis Diagnosis: Necrotizing cellulitis right lower extremity Code Status: Full Code - Medication Management Discharge Medications: Medications to Continue on Transfer Ibuprofen [Motrin (*)] 600 mg PO DAILY PRN 01/28/17 [Last Taken 01/27/17] Prison Antibiotics: Ceftriaxone 2 g IV daily Clinical Quality Analyst Antibiotic Stop Date: 02/27/17 Discharge Medications: Refer to the Discharge Home Medication list for PRN reason. PICC Care - Routine: Yes - Orders Services needed: Home Jail Care Face to Face: I certify that this patient was under my care and that I had the required [id number] encounter meeting the encounter requirements on the discharge day. My findings support the fact that the patient is homebound as defined in CMS Chapter 7 Medicare Benefits Manual 30.1.1, The condition of the patient is such that there exists a normal inability to leave home and consequently, leaving home would require a considerable and taxing effort. - Labs/Radiology CBC Date: 02/06/17 (Weekly Q ) CMP Date: 02/06/17 (Weekly Q ) Call or Fax Lab and Imaging Results to: Dr. Judd, - Follow Up Care Current Providers and Referrals: NONE *PRIMARY CARE P,. [Primary Care Provider] - As per Instructions
--- NOTE | 2017-02-03 10:07 | PCMIDPN ---
Assessment/Plan: Assessment/Plan: * Right lower extremity severe cellulitis with necrosis in myositis due to group B Streptococcus/Streptococcus anginosus: Continue ceftriaxone 2 g IV daily. Plan 4 week course of therapy initially although this will ultimately be dictated by clinical findings over time. Discussed with patient that this may ultimately require amputation of the great toe. Plan weekly CBC and CMP while on ceftriaxone. Patient will follow up with Dr. Noble for wound VAC change next Friday and I will coordinate to see her simultaneously in Dr. Noble office from Infectious Disease perspective. * Diarrhea: Likely antibiotic associated. Primarily small volume. Think less likely C diff associated based on clinical course. If becomes more prominent, will assess for C difficile as outpatient. Findings and plan reviewed with patient, sister, Dr. Noble, and Martina Mendoza NP. 02/03/17 10:03 Subjective: Patient with for episodes of small volume diarrhea this a.m.. No abdominal pain. Objective: Vital Signs Temp Pulse Resp BP Pulse Ox 36.9 C 79 15 164/97 H 92 02/03/17 07:53 02/03/17 07:53 02/03/17 07:53 02/03/17 07:53 02/03/17 07:53 Microbiology 01/28/17 17:00 Gram Stain - Final Foot - Tissue Laboratory Results 02/03/17 05:35 02/03/17 05:35 02/02/17 02/03/17 02/04/17 05:59 05:59 05:59 Intake Total 1750 300 Balance 1750 300 ESR 48 MM/HR (0-30) H 01/28/17 04:25 C-Reactive Protein 133.9 mg/L (<10.0) H 01/28/17 04:25 Ceftriaxone # 2 Antibiotics # 5 - Physical Exam General Appearance: alert, no apparent distress EENT: No scleral icterus Extremities: inflammation (Right foot examined with wound VAC off;) ICD10 Worksheet Patient Problems: Problems Problem Status Onset Gangrene of foot Acute
--- NOTE | 2017-02-03 10:09 | HOSPPROG ---
Hospitalist Progress Note Assessment/Plan: Patient is a 56/F who presented to the Urgent care with complaint of R foot infection. She had been traveling most recently to [place]. She developed a blister on the plantar aspect of her right foot. In addition she had subjective fever prior to admission. Dr Francis and I met with the patient and her 2 sisters. Reviewed her care with Dr Noble. # acute right foot necrotizing cellulitis/ Myositis -s/p debridement x 2 -wound vac in place/Dr Noble changed today -MRI concerning for poss osteomyelitis or sesamoiditis of the medial sesamoid -abx changed to ceftriaxone/will need 4 weeks -blood cultures -NGTD -PICC placed # New diagnosis of Diabetes/ Hyperglycemia -HBA1c is 10.2 on admission - she prefers no Metformin at this time or any oral agent -started on low dose SSI/ and added basal insulin at night -ADA diet -slowly increasing Lantus # Hypoxemia/acute -resolved #loose stools 3 bouts #nasal congestion with associated headache Excedrin added if needed Flonase has helped a bit/ Sudafed ordered #HTN -bp elevated today -will have her f/u with PCP/ get a bp cuff and monitor # obesity with a BMI of 36 # acute leukocytosis- secondary to foot cellulitis and wound # prophylaxis with Lovenox # Plan: dc today Subjective: Brenna is not c/o pain. Objective: Vital Signs Temp Pulse Resp BP Pulse Ox 36.9 C 79 15 164/97 H 92 02/03/17 07:53 02/03/17 07:53 02/03/17 07:53 02/03/17 07:53 02/03/17 07:53 Microbiology 01/28/17 17:00 Gram Stain - Final Foot - Tissue Laboratory Results 02/03/17 05:35 02/03/17 05:35 02/02/17 02/03/17 02/04/17 05:59 05:59 05:59 Intake Total 1750 300 Balance 1750 300 PT 14.9 SEC (12.0-15.0) 01/28/17 04:25 INR 1.17 (0.83-1.16) H 01/28/17 04:25 - Physical Exam Constitutional: no apparent distress, appears nourished, not in pain Eyes: PERRL Ears, Nose, Mouth, Throat: hearing normal Cardiovascular: regular rate and rhythym Respiratory: no respiratory distress Gastrointestinal: normoactive bowel sounds Skin: warm, other (wound vac on right foot/ right big toe with erythema at base of nail) Musculoskeletal: no muscle tenderness Neurologic: AAOx3 Psychiatric: interacting appropriately ICD10 Worksheet Patient Problems: Problems Problem Status Onset Gangrene of foot Acute
--- NOTE | 2017-02-03 10:23 | PDIAF ---
- Diagnosis Diagnosis: Necrotizing cellulitis right lower extremity, new diagnosed Diabetes Code Status: Full Code - Medication Management Discharge Medications: Medications to Continue on Transfer Ibuprofen [Motrin (*)] 600 mg PO DAILY PRN 01/28/17 [Last Taken 01/27/17] Acetaminophen [Tylenol 325mg (*)] 650 mg PO Q4HRS PRN #0 tab 02/03/17 [Last Taken Unknown] Fluticasone Nasal [Flonase Nasal [place]] 2 sprays EACHNARE DAILY #1 mdi 02/03/17 [Last Taken Unknown] Insulin Glargine [Lantus 100 UNITS/ML (*)] 13 units SC HS #0 ml 02/03/17 [Last Taken Unknown] Insulin Lispro [humALOG LISPRO 100 units/ml (*)] 0 unit SC TIDMEAL #0 unit 02/03 [Last Taken Unknown] Syringe Ndl,Insul U-500,0.5ML [Insulin Syringe] 1 each AC #0 disp.syrin 02/03 [Last Taken Unknown] cefTRIAXone [Rocephin] 2 gm IV DAILY #0 vial 02/03/17 [Last Taken Unknown] Fpc Antibiotics: Ceftriaxone 2 g IV daily Drum Stock Clerk Antibiotic Stop Date: 02/27/17 Discharge Medications: Refer to the Discharge Home Medication list for PRN reason. PICC Care - Routine: Yes - Orders Services needed: Home Care, Registered Nurse Home Care Face to Face: I certify that this patient was under my care and that I had the required [id number] encounter meeting the encounter requirements on the discharge day. My findings support the fact that the patient is homebound as defined in CMS Chapter 7 Medicare Benefits Manual 30.1.1, The condition of the patient is such that there exists a normal inability to leave home and consequently, leaving home would require a considerable and taxing effort. Diet Recommendation: ADA 1800 consistent carb Diet Texture: Regular Texture Diet Equipment: wound vac on right foot/ have home companion check it on Friday and Fridays - Labs/Radiology CBC Date: 02/06/17 (Weekly Q ) CMP Date: 02/06/17 (Weekly Q ) Call or Fax Lab and Imaging Results to: Dr. Judd, - Follow Up Care Current Providers and Referrals: Rich Francis MD [Medical Doctor] - NONE *PRIMARY CARE P,. [Primary Care Provider] - As per Instructions Michelle Noble MD [Medical Doctor] -
--- NOTE | 2017-02-03 10:54 | SOAPPROG ---
SOAP Progress Note Assessment/Plan: Assessment: 56 yo F s/p debridement of R plantar foot wound Wound vac - changed this morning with placement of amniofill Home care to change wound VAC on Friday for [address] Noble on Sunday 02/11 for wound VAC change. Authorizing outpatient use of epifix. Continue iv antibiotics per ID Appreciate hospitalists Case management to authorize outpatient wound vac and home care Seen with Dr. Noble and Dr. Francis O: laying in bed, comfortable, NAD, sister at bedside no increased WOB No peripheral edema Erythema improving but Great toe still erythematous on dorsal aspect wound measurements 7 x 4 x 0.7 cm. Tendon visible, layer covering periosteum. Wound overall improved Objective: Vital Signs Temp Pulse Resp BP Pulse Ox 36.9 C 79 15 164/97 H 92 02/03/17 07:53 02/03/17 07:53 02/03/17 07:53 02/03/17 07:53 02/03/17 07:53 Microbiology 01/28/17 17:00 Gram Stain - Final Foot - Tissue Laboratory Results 02/03/17 05:35 02/03/17 05:35 02/02/17 02/03/17 02/04/17 05:59 05:59 05:59 Intake Total 1750 300 Balance 1750 300 PT 14.9 SEC (12.0-15.0) 01/28/17 04:25 INR 1.17 (0.83-1.16) H 01/28/17 04:25 ICD10 Worksheet Patient Problems: Problems Problem Status Onset Gangrene of foot Acute
--- NOTE | 2017-02-03 11:21 | GPN ---
[f rep st] PROCEDURE NOTE DATE OF PROCEDURE: 02/03/2017 PREPROCEDURE DIAGNOSIS: Right lower extremity diabetic foot ulcer. POSTPROCEDURE DIAGNOSIS: Right lower extremity diabetic foot ulcer. INDICATION: The patient is a 56-year-old woman who presented with an infected diabetic foot ulcer. She was taken to the operating room for debridement of skin and soft tissue with wound VAC placement. She is on IV antibiotics, and the erythema has significantly improved. PROCEDURE PERFORMED: Application of tissue-derived skin substitute, amniocell 250 mg. FINDINGS: Amniocell 250 mg [id number], expiration 09/03/2021. Wound measures 7 x 4 x 0.1 cm. DESCRIPTION OF PROCEDURE: The patient was lying prone on her hospital bed. The wound VAC dressing was taken down. The surrounding erythema was significantly improved but still prominent in the dorsal aspect of her right great toe. There was tendon visible in the base of the wound. The wound measured 7 x 4 x 0.7 cm which was improved compared to her operative debridement. The wound was cleansed with normal saline. We then placed amniocell 250 mg in the base of the wound followed by the wound VAC. She tolerated the procedure well. She will have Home Care change the wound VAC dressing on 02/07/2017, and will follow up in our office on 02/11/2017 for dressing change and wound check. /[id number]/MODL MTDD
[2017-02-03] MEDS: ACETAMINOPHEN 325 MG TAB PO PRN (11:53)
--- NOTE | 2017-02-03 14:46 | WOCRNPDOC ---
WOCRN Advanced Assessment Note - Skin Integrity Problem, Advanced Assess Right First Toe Dressing Type: Wound Vac Dressing Description: Not Intact Skin Integrity Problem Comment: Dressing with leak alert. Cut drape off and replaced both drape, trac pad and bridge. Redraped over existing black foam to keep amniofill in place. Home Vac working at - 125 mm Hg continuous without leaks at end of care. Student Hetal in room for care.
--- NOTE | 2017-02-03 16:16 | GDS ---
[f rep st] DISCHARGE SUMMARY DISCHARGE DIAGNOSES: 1. Acute right foot necrotizing cellulitis/myositis. 2. New diagnoses of diabetes. 3. Acute hypoxemia. 4. Loose stools. 5. Nasal congestion with associated headache. 6. Hypertension. 7. Obesity, with a BMI of 36. 8. Acute leukocytosis. CONSULTATIONS DURING HER STAY: 1. Yuri Maier MD. 2. Cori Valencia MD. 3. Patricia Judd MD, and Rich Francis MD, with Infectious Disease. 4. Michelle Noble MD, with surgical Services. BRIEF HISTORY AND HOSPITAL COURSE: Briefly, the patient is a 56-year-old woman , who does not have any significant past medical history, who presented to the urgent care due to foul-smelling open wound on her right foot. She started noticing symptoms 6 days prior to admission, when she was running to the airport and twisted her ankle. She started to notice swelling of her foot, and jammed her foot into a tight-fitting shoe. She had calluses on the bottom of her feet. She started on her sister's penicillin, and then flew to [place] with her sisters. In [place] she saw a local [facility] doctor, who put her on ciprofloxacin and clindamycin, which she took until she flew back again to [place]. She was then seen and evaluated at urgent care. Blood cultures were checked during her stay, which were negative. She had a foot x-ray, which showed gas in the subcutaneous tissue, but no obvious osteomyelitis. She had a lower extremity MRI, which showed evidence of cellulitis in the foot and probable open wound at the plantar aspect of the 1st proximal phalanx, with air. She had no evidence for abscess. Myositis. Possible osteomyelitis or sesamoiditis of the medial sesamoid. She was seen and evaluated by Dr. Maier, and on 01/28 she had a debridement of the right forefoot ulcer. She continued to have redness and swelling. She was further evaluated by Dr. Noble, and on , she had a debridement of skin and soft tissue and the tendon of the right foot. The findings were that the tendon was exposed. The wound measured 7 x 4 x 1 cm. It was noted that she had good supply to the wound. She has a wound VAC in place. This will be continued. She will further follow up with Dr. Andrew in the outpatient setting. In addition, she will follow up with the Infectious Disease team. It was also noted that she had a new diagnosis of diabetes. She was treated with a sliding scale and basal insulin. Her glucoses have improved. She will follow up with her primary care provider. HOSPITAL COURSE PER PROBLEM: 1. Acute right foot necrotizing cellulitis and Myositis due to group B streptococcus/Streptococcus anginosus. She will be continued on ceftriaxone 2 g daily. The plan is for a 4-week course of therapy, but this will be dictated by clinical findings. She ultimately may require amputation of the great toe. She will follow up with Dr. Noble for a wound VAC change next Friday. At that time, the infectious disease doctor, Dr. Francis, will coordinate simultaneously with Dr. Noble to further evaluate the wound. At discharge, a wound VAC has been arranged, and a home care nurse will check on her to make sure the wound VAC is working appropriately. A PICC is in place. 2. New diagnosis of diabetes. Hemoglobin A1c was 10.2 on admission. She prefers no oral treatment. Glucoses have been overall maintained with basal insulin at night. The nursing staff has shown her how to check her glucoses before meals and at night. She will be on a sliding scale insulin, and further follow up with her primary care provider. 3. Acute hypoxemia, resolved. 4. Loose stools. Three bowels today. Infectious Disease will follow and monitor. 5. Nasal congestion with associated headaches, no complaints. 6. Hypertension. Blood pressure has varied throughout her stay. Will have her get a cuff, and recommended the goal is to keep her blood pressure normalized. Further follow up with her primary care provider 7. Obesity, with a BMI of 36. 8. Acute leukocytosis. This is secondary to her infection. PENDING LABS AND TESTS: None. CONDITION AT DISCHARGE: Stable. Blood pressure is 164/97, heart rate is 79, respiratory rate is 15, O2 sats on room air 92%, temperature is 36.9 Celsius. MEDICATIONS AT DISCHARGE: Please see the EMR. DISCHARGE INSTRUCTIONS: 1. Diabetic diet. 2. Check her blood sugars q.a.c. and q.h.s. 3. The nursing staff to review with her signs and symptoms of hypoglycemia. 4. If she has any fevers, chills, chest pain, shortness of breath, return to the ER. 5. If foot develops more redness, or she has more loose stools, greater than 3 a day, to call the ID doctor. 6. Encouraged to consider an oral agent for her diabetes. 7. To track her blood pressures at home, and if they stay elevated she needs to get treatment. 8. Greater than 30 minutes discharging and coordinating care. /[id number]/MODL MTDCasey
--- NOTE | 2017-02-06 12:35 | PQFORM ---
PHYSICIAN QUERY FORM Needs Your Response This query form is being sent to you to assure this patient record is coded properly. Please respond to the question below: TRANSITIONAL CARE LIAISON QUESTION: Dr. Maier, Documentation in the operative report for this Inpatient states the ulcer of the foot was sharply debrided. Can this further be specified as excisional debridement? YES __X__ NO CLINICALLY UNDETERMINED ____ Thank you. Esther Gonzalez DEBIT AGENT [facility]/Coding Department INSTRUCTIONS FOR RESPONSE: Answer question by clicking on the "Edit Document" button. Move cursor to area below the stars. When complete, hit "Save." Click on the "Sign" button, then click "Sign" again. Type in your PIN and hit "Enter." MTDD
== END 2017-02-03 14:37 | disposition home health service (06) | DRG 501 ==
LOC: CED 20:39 → CEDHOLD 21:51 → F3N 23:25
PROVIDERS: ADMIT Family Medicine; ATTEND Internal Medicine
PROC: 0LBV0ZZ Excision of Right Foot Tendon, Open Approach (ICD-10-PCS; principal; 2017-01-28 16:30)
PROC: 02HV33Z Insertion of Infusion Device into Superior Vena Cava, Percutaneous Approach (ICD-10-PCS; 2017-01-30)
PROC: 0LBV0ZZ Excision of Right Foot Tendon, Open Approach (ICD-10-PCS; 2017-01-30 16:00)
PROC: 0JU Subcutaneous Tissue and Fascia, Supplement (ICD-10-PCS; 2017-02-03)
DX: M60.073 Infective myositis, right foot (principal); E10.52 Type 1 diabetes mellitus with diabetic peripheral angiopathy with gangrene; L03.115 Cellulitis of right lower limb; E66.9 Obesity, unspecified; B95.1 Streptococcus, group B, as the cause of diseases classified elsewhere; D72.829 Elevated white blood cell count, unspecified; I10 Essential (primary) hypertension; R09.02 Hypoxemia; R09.81 Nasal congestion; R19.7 Diarrhea, unspecified; Z68.36 Body mass index [BMI] 36.0-36.9, adult
CPT/HCPCS: 73630-PO; 80048-PO; 85025-PO; 85652-PO; 96365-PO; 96368-PO; 97116-GP; 97161-GP; 97165-GO; 97530-GP; 97535-GO; A9585; C1751; G0463-PO; J0696; J1170; J1650; J1815; J2250; J2370; J2405; J2543; J2704; J3010; J3370